=== PATIENT | female | born 1945 | race Caucasian/White ===

== ENCOUNTER 2017-12-01 11:38 | Inpatient (IN) | payer OTHER ==
[2017-12-01] MEDS ORDERED: Morphine INJ* 4 MG/ML 1 ML SYRINGE (NEW SYRINGE VERSION) IV ONE (12:36)
[2017-12-01 12:41] LABS: ABS Basophils 0 10^3/ul (0-0.2); ABS Eosinophils 0 10^3/ul (0-0.6); ABS Lymphocytes 0.8 10^3/ul (1.0-4.8); ABS Monocytes 0.3 10^3/ul (0-0.8); ABS Neutrophils 4.1 10^3/ul (1.5-7.7); ABS Nucleated RBC 0 10^3/ul; Eosinophil % 0.4 % (0-6); Hematocrit 37 % (35-47); Hemoglobin 12.6 g/dl (12.0-16.0); Lymphocyte % 15.4 % (25-47); Mean Corpuscular HGB Conc 34 g/dl (31-36); Mean Corpuscular Hemoglobin 31 pg (27-31); Mean Corpuscular Volume 91 fL (80-97); Mean Platelet Volume 7.5 um3 (7.4-10.4); Nucleated Red Blood Cells % 0; Platelet Count 317 10^3/ul (150-450); Red Blood Count 4.01 10^6/ul (4.0-5.4); Red Cell Distribution Width 13 % (10.5-15); White Blood Count 5.2 10^3/ul (3.5-10.8)
[2017-12-01 13:19] LABS: EGFR Non-African American 94.4 (>60)
--- NOTE | 2017-12-01 13:25 | RAD ---
HISTORY: Syncope COMPARISONS: None TECHNIQUE: Multiple contiguous axial CT scans were obtained of the head without intravenous contrast. FINDINGS: HEMORRHAGE/INFARCT: There is no hemorrhage or acute infarct. MASSES/SHIFT: There is no mass or shift. EXTRA-AXIAL SPACES: There are no extra-axial fluid collections. SULCI AND VENTRICLES: The sulci and ventricles are normal in size and position for the patient's stated age. CEREBRUM: There are no focal parenchymal abnormalities. BRAINSTEM: There are no focal parenchymal abnormalities. CEREBELLUM: There are no focal parenchymal abnormalities. VESSELS: The vessels are grossly normal. PARANASAL SINUSES: The paranasal sinuses are clear. ORBITS: The orbits are unremarkable. BONES AND SOFT TISSUE: No bone or soft tissue abnormalities are noted. OTHER: None IMPRESSION: NO ACUTE INTRACRANIAL PATHOLOGY.
--- NOTE | 2017-12-01 13:28 | RAD ---
HISTORY: Syncope, fall. No other history is provided. COMPARISONS: None TECHNIQUE: Multiple contiguous axial CT scans were obtained of the cervical spine without intravenous contrast, with coronal and sagittal multiplanar reformations. FINDINGS: BRAIN: The visualized brain is unremarkable CENTRAL CANAL: Evaluation of the central canal is limited on CT technique; however, there is no obvious canalicular mass or epidural hemorrhage. ALIGNMENT: There is straightening with reversal of the normal cervical lordosis. VERTEBRAL BODIES: There is diffuse osteopenia. There is no displaced fracture or dislocation. JOINTS: There is uncovertebral and facet osteoarthritis. There is osteoarthritis of the atlantoaxial articulation. MUSCULATURE: Unremarkable INTERVERTEBRAL DISCS: There is diffuse loss of intervertebral disc height. AXIAL IMAGES: There is multilevel uncovertebral and facet osteoarthritic. This results in moderate neural foraminal narrowing at C4-C5 and C6-C7, with severe neural foraminal narrowing at C5-C6. There is no osseous central canal stenosis. SOFT TISSUES: The visualized soft tissues of the neck are unremarkable. The prevertebral fat stripe is preserved. OTHER: None. IMPRESSION: 1. DEGENERATIVE DISC DISEASE AND OSTEOARTHRITIS. 2. NO ACUTE OSSEOUS INJURY TO THE CERVICAL SPINE.
--- NOTE | 2017-12-01 14:45 | RAD ---
HISTORY: Left ankle pain and deformity, fall COMPARISONS: None VIEWS: 6, Frontal, lateral, and oblique views of the left ankle FINDINGS: BONE DENSITY: Normal. BONES: There is oblique fracture through the distal fibula with a displaced fracture of the medial malleolus. There is medial subluxation of the tibia with suspected the talus of approximately 2 cm. There is anterior subluxation of the tibia with suspected the talus. There is widening of the tibiofibular interval. JOINTS: There is no arthropathy. ALIGNMENT: There is no dislocation. SOFT TISSUES: Unremarkable. OTHER FINDINGS: None. IMPRESSION: BIMALLEOLAR FRACTURE OF THE LEFT ANKLE WITH ANTERIOR AND MEDIAL SUBLUXATION OF THE TIBIA WITH RESPECT TO THE TALUS AND WIDENING OF THE TIBIOFIBULAR INTERVAL
--- NOTE | 2017-12-01 14:46 | RAD ---
HISTORY: Left foreleg pain, fall COMPARISONS: Left ankle dated December 01, 2017 VIEWS: 3, Frontal and lateral views of the left foreleg FINDINGS: BONE DENSITY: Normal. BONES: Again noted is an oblique fracture of the distal fibula, with a displaced fracture of the medial malleolus, better evaluated on the ankle films. JOINTS: There is no arthropathy. ALIGNMENT: There is no dislocation. SOFT TISSUES: Unremarkable. OTHER FINDINGS: None. IMPRESSION: AGAIN NOTED IS A BIMALLEOLAR FRACTURE OF THE LEFT ANKLE.
--- NOTE | 2017-12-01 14:46 | RAD ---
INDICATION: Syncope and chest pain COMPARISON: None. TECHNIQUE: Single AP portable view of the chest was obtained. FINDINGS: Image quality is compromised due to the relative inferiority of a portable chest x-ray. External defibrillator pads are noted overlying the patient's chest. The heart and mediastinum exhibit normal size and contour. The lungs are grossly clear. There is no evidence of a large pleural effusion. Appearance of healed rib fractures are noted at the left 4 and 5 lateral ribs. IMPRESSION: No radiographic evidence for acute cardiopulmonary abnormality on this portable chest x-ray.
--- NOTE | 2017-12-01 14:47 | RAD ---
INDICATION: Pain after a fall. Relevant surgical history includes right total hip arthroplasty. TECHNIQUE: An AP view of the pelvis was obtained. FINDINGS: The right hip prosthesis is anatomically aligned in the AP projection. There is no evidence of fracture on this single AP view. The visualized bones are intact and appropriately aligned. IMPRESSION: Anatomic alignment of the right hip prosthesis in the AP projection without radiographically apparent fracture or dislocation.
[2017-12-01] MEDS ORDERED: Midazolam* 1 MG/ML 2 ML VIAL (2 MG) IV ONE (14:56)
[2017-12-01] MEDS ORDERED: fentaNYL* 50 MCG/ML 2 ML VIAL (100 MCG VIAL) IV SLOW PU ONE (14:56)
[2017-12-01] MEDS ORDERED: Atropine SYRINGE* 0.1 MG/ML 10 ML SYRINGE (1 MG) IV PUSH ONE (15:00)
[2017-12-01] MEDS ORDERED: Lidocaine 1% INJ* 10 MG/ML 30 ML SDV ONE (15:34)
[2017-12-01] MEDS ORDERED: Perflutren Lipid Microsphere* 3 ML VIAL ONE (15:40)
--- NOTE | 2017-12-01 15:48 | CONSULT ---
Subjective Date of Service: 12/01/17 Interval History: Date of admission and consult 12/01/2017 PMD: Dr. Nirav Kay Service: Hospitalist CC: syncope Reason for consult: Syncope, sinus arrest HPI Radha Madrid is a 72 year old woman with recurrent LOC without prodrome. Last episode was 2 years ago while putting in a lightbulb, has had about 5 full loss of consciousness total episodes. Today was in kitchen writing and without prodrome or warning was found on floor. She was found to have a left lower extremity fracture that may require surgery. While in the ER she had severe bradycardia followed by a 7 second pause associated with brief syncope. She was in 9/10 pain at the time and may have been in part vagal cardioinhibitory mediated. She later had severe symptomatic bradycardia associated with nausea but not LOC. She hashas had dizziness episodes recently. At baseline she uses a cane if out sometimes but denies any outright exertional CP, dyspnea, edema, palpitations. Given her recurrent syncope without prodrome, severe injury including a broke bone and documented symptomatic pause I recommended a cardiac pacemaker. I discussed the reasoning for this as to hope to prevent further syncopal episodes and she is agreeable to this. Her (and later daughter while in ICU) were at bedside. All questions were answered. Pmhx: PE 3 years ago found during a pneumonia, was on warfarin up until a year ago TIA's in the past HTN Denies any hx of CAD, PAD, MS, CHF or arrhythmias PAST SURGICAL HISTORY: 1. Tonsillectomy. 2. Left shoulder replacement. 3. Kyphoplasty. 4. Esophageal procedure. 5. Hiatal hernia repair. 6. Hysterectomy. 7. Right hip hemiarthroplasty. 8. Right total hip arthroplasty. fam hx: noncontributory soc hx: no tobacco use, no excessive etoh use, no illicit drugs, is healthcare proxy Allergies Allergy/AdvReac Type Severity Reaction Status Date / Time Adhesive Tape Allergy Severe Blisters Verified 08/03/16 12:13 cephalexin [From Keflex] Allergy Unknown Verified 12/01/17 15:24 Reaction Details Medications Active Medications: Active Medications Generic Name Dose Route Start Last Admin Trade Name Freq PRN Reason Stop Dose Admin Albuterol 2 puff 12/01/17 16:06 Ventolin Hfa Inhaler* INH Q4H PRN SHORTNESS OF BREATH Benzonatate 100 mg 12/01/17 16:06 Tessalon Cap* PO TID PRN COUGH Cyclobenzaprine HCl 5 mg 12/01/17 16:06 Flexeril Tab* PO TID PRN SPASMS - MUSCLE Heparin Sodium (Porcine) 5,000 units 12/01/17 22:00 Heparin Vial(*) SUBCUT 12/01/17 23:59 Q8HR [facility] Hydroxyzine HCl 25 mg 12/01/17 16:06 Atarax Tab* PO TID PRN ITCHING Sodium Chloride 1,000 mls @ 75 mls/hr 12/01/17 16:00 12/01/17 18:19 Ns 0.9% 1000 Ml* IV 75 mls/hr PER RATE MICK Administration Clindamycin HCl/Dextrose 900 mg in 50 mls @ 100 mls/hr 12/02/17 08:00 Cleocin 900 Mg Ivpremix (*) Sdv IV 12/02/17 08:29 ONCALL ONE Lisinopril 20 mg 12/02/17 09:00 Prinivil Tab* PO DAILY [facility] Omeprazole 20 mg 12/02/17 09:00 Prilosec Cap* PO DAILY [facility] Protocol Oxycodone/Acetaminophen 1 tab 12/01/17 16:06 Percocet 5/325 Tab* PO Q4H PRN FEVER/PAIN Polyethylene Glycol/Electrolytes 17 gm 12/01/17 16:06 Miralax* PO DAILY PRN CONSTIPATION Potassium Chloride 10 meq 12/02/17 09:00 Klor Con Er Tab* PO DAILY [facility] Pramipexole Dihydrochloride 0.25 mg 12/01/17 21:00 Mirapex Tab* PO BEDTIME [facility] Senna 1 tab 12/01/17 21:00 Senokot Tab* PO BID [facility] Home Medications: Aspirin EC Low Dose* [Ecotrin EC Low Dose 81 MG*] 81 mg PO DAILY 12/01/17 [ History Confirmed 12/01/17] Cholecalciferol (Vitamin D3) [Vitamin D3] 1,000 unit PO BID 12/01/17 [History Confirmed 12/01/17] Cyclobenzaprine (NF) [Cyclobenzaprine 5 MG (NF)] 5 mg PO BID PRN 12/01/17 [ History Confirmed 12/01/17] Cyproheptadine TAB* [Periactin TAB*] 4 mg PO SEE INSTRUCTIONS 12/01/17 [History Confirmed 12/01/17] Esomeprazole(NF) [NEXium(NF)] 20 mg PO DAILY 12/01/17 [History Confirmed ] Lisinopril/HCTZ 20/25(NF) [Zestoretic 20/(NF)] 1 tab PO DAILY 12/01/17 [ History Confirmed 12/01/17] Potassium Chlor TAB* [Klor Con ER TAB*] 10 meq PO DAILY 12/01/17 [History Confirmed 12/01/17] Pramipexole TAB* [Mirapex TAB*] 0.25 mg PO BEDTIME 12/01/17 [History Confirmed 12/01/17] Senna TAB* [Senokot TAB*] 1 tab PO BID 12/01/17 [History Confirmed 12/01/17] hydrOXYzine HCL TAB* [Atarax 25 MG TAB*] 25 mg PO TID PRN 12/01/17 [History Confirmed 12/01/17] oxyCODONE/Acetamin 5/325 MG* [Percocet 5/325 TAB*] 1 tab PO Q4H PRN 12/01/17 [ History Confirmed 12/01/17] Review of Systems - Measurements Intake and Output: Intake and Output Last 24 Hours 11/29/17 11/30/17 12/01/17 12/02/17 06:59 06:59 06:59 06:59 Weight 179 lb - Review of Systems Constitutional Symptoms: Negative: Weight Gain, Weight Loss, Weakness, Fatigue, Fever Dermatology: Negative: Rash, Skin Lesions HEENT: Negative: Change in Hearing, Vertigo, Tinnitus Eyes: Negative: Change in Vision, Double Vision Thyroid: Negative: Goiter, Thyroid Nodule, Cold Intolerance, Heat Intolerance, Sweatiness, Tremor, Frequent Defecation, Constipation, Palpitations, Weight Loss , Weight Gain Pulmonary: Negative: Cough, Sputum, Hemoptysis, Wheezing, Respiratory Distress, Shortness of Breath, COPD, Asthma, Home Oxygen Cardiology: Positive: Faintness, Syncope Negative: Chest Pain, Shortness of Breath, Palpitations, Swelling of Ankles, Peripheral Vascular Dis, Edema, Claudication, Paroxysmal Nocturnal Dyspnea, Orthopnea Gastroenterology: Negative: Abdominal Pain, Anorexia, Difficulty Swallowing, Change in Bowel Habits Genital - Urinary: Negative: Dysuria, Hematuria, Polyuria Musculoskeletal: Negative: Joint Pain, Joint Stiffness, Arthritis Endocrinology: Negative: Thyroid Problems, Polydipsia, Polyuria, Gynecomastia, Pituitary Disease Hematologic/Lymphatic: Positive: Use of Antiplatelet Drugs Negative: Use of Anticoagulant Neurology: Positive: Dizziness, Hx of Stroke\TIA Negative: Diplopia, Change in Balancing, Change in Coordination, Change in Memory, Change in Walking, Numbness\Paresthesiae, Hx Seizures Psychiatry: Negative: Unusual Fatigue, Unusual Anxiety, Suicidal Ideation Allergic/Immunologic: Negative: Hx HIV, Immunocompromise Review of Systems Statement: All other review of systems negative, unless stated above. Objective Vital Signs: Temp Pulse Resp BP Pulse Ox 97.2 F 74 18 123/80 100 12/01/17 11:45 12/01/17 15:00 12/01/17 15:12 12/01/17 15:00 12/01/17 15:00 Appearance: nad, not anxious Ears/Nose/Mouth/Throat: Clear Oropharnyx, Mucous Membranes Moist Neck: NL Appearance and Movements; NL JVP, Trachea Midline Respiratory: Symmetrical Chest Expansion and Respiratory Effort, Clear to Auscultation Cardiovascular: NL Sounds; No Murmurs; No JVD, RRR Abdominal: NL Sounds; No Tenderness; No Distention Extremities: No Clubbing, Cyanosis Skin: No Rash or Ulcers, - - left ankle in brace Laboratory Results: 0 12/01/17 12:30 12/01/17 12:30 Total Bilirubin 0.60 mg/dL (0.2-1.0) 12/01/17 12:30 AST 16 U/L (13-39) 12/01/17 12:30 ALT 19 U/L (7-52) 12/01/17 12:30 Alkaline Phosphatase 77 U/L (34-104) 12/01/17 12:30 B-Natriuretic Peptide 13 pg/mL (-100) 12/01/17 12:30 Total Protein 7.0 g/dL (6.4-8.9) 12/01/17 12:30 Albumin 3.9 g/dL (3.2-5.2) 12/01/17 12:30 Globulin 3.1 g/dL (2-4) 12/01/17 12:30 Albumin/Globulin Ratio 1.3 (1-3) 12/01/17 12:30 TSH 0.97 mcIU/mL (0.34-5.60) 12/01/17 12:30 12/01/17 12:30 Troponin I 0.01 Diagnostic Imaging: cxr 12/01/2017: no acute disease brain ct 12/01/2017: no acute disease EKG Data: ekg 12/01/2017: nsr, non-specific st changes lead III Echo today 12/01/2017: Normal LV and RV size and function, no significant valvular abnormalities noted, no significant pericardial effusion. Assessment/Plan Radha Madrid is a 72 year old woman with recurrent syncope with injury and without prodrome. She has documented severe sinus bradycardia and 7 second symptomatic pause while in pain/vagal response in the ER. LVEF normal. Permanent cardiac dual chamber pacemaker recommended. Risks, benefits and alternatives discussed and patient wished to proceed. Would use good pain control and anti-nausea medicine to help prevent vagal responses, adequate IV hydration and use atropine IV PRN NPO after midnight for pacemaker tomorrow with Dr. Malone, hold DVT prophylaxis after tonight Thank you for allowing me to participate in the cardiovascular care of this patient. Please do not hesitate to contact me questions or concerns.
[2017-12-01] MEDS ORDERED: Benzonatate CAP* 100 MG PO PRN (16:06)
[2017-12-01] MEDS ORDERED: Albuterol HFA INHALER* 8 gm MDI INH PRN (16:06)
[2017-12-01] MEDS ORDERED: oxyCODONE/Acetamin 5/325 MG* TAB PO PRN (16:06)
[2017-12-01] MEDS ORDERED: Polyethylene Glycol 3350* 17 GM PACKET PO PRN (16:06)
[2017-12-01] MEDS ORDERED: hydrOXYzine HCL TAB* 25 MG PO PRN (16:06)
[2017-12-01] MEDS ORDERED: Atropine SYRINGE* 0.1 MG/ML 10 ML SYRINGE (1 MG) ONE ×2 (16:12→21:51)
--- NOTE | 2017-12-01 17:02 | RAD ---
INDICATION: Post reduction COMPARISON: Left ankle radiograph acquired at 1351 hours TECHNIQUE: 2 views of the left ankle were obtained. FINDINGS: Evaluation of the left ankle is obscured by the patient's overlying splint. Again seen are fractures at the distal tibia and fibula corresponding to the prior imaging. The bones are otherwise anatomically aligned. IMPRESSION: ANATOMIC ALIGNMENT OF LEFT TRIMALLEOLAR FRACTURE STATUS POST ATTENDING
--- NOTE | 2017-12-01 17:23 | ECHO ---
Patient: MASOUD BAILEY [facility] Rec#: [id number] : 1945 Date: 12/01/2017 Age: 72y Height: 167.64 cm / 66.0 in Weight: 81.19 kg / 178.9 lbs Sex: F BSA: 1.91 Room#: ED 10 Admit Date#: 12/01/2017 Type: Inpatient Referring: Adeel Ovalle DO Reading: Adeel Ovalle DO [employer] Technician: Elicia Walls RD,RDMS Transthoracic Echocardiogram Indication: Syncope BP: 123/80 HR: 66 Rhythm: NSR Findings History: Syncope, HTN, HLD, DVT/PE Technical Comments: The study quality is good. Left Ventricle: The left ventricular chamber size is normal. Mild concentric left ventricular hypertrophy is observed. Global left ventricular wall motion and contractility are within normal limits. There is normal left ventricular systolic function. The estimated ejection fraction is greater than 65%. There is no consistent Doppler evidence of clinically significant diastolic dysfunction. Left Atrium: The left atrial chamber size is normal. Right Ventricle: The right ventricular chamber size and systolic function are within normal limits. Right Atrium: The right atrium is slightly dilated. Aortic Valve: The aortic valve is trileaflet. Systolic excursion of the aortic valve is normal. There is aortic annular calcification.that is mild There is no evidence of aortic regurgitation. There is no evidence of aortic stenosis. Mitral Valve: The mitral valve leaflets appear normal. There is a trace of mitral regurgitation. There is no evidence of mitral stenosis. Tricuspid Valve: The tricuspid valve leaflets are normal. There is trace tricuspid regurgitation. Unable to estimate the right ventricular systolic pressure. Pulmonic Valve: The pulmonic valve structure is not well visualized. There is a trace pulmonic regurgitation. There is no pulmonic stenosis. Pericardium: There is no significant pericardial effusion. Aorta: The aortic root appears normal. There is no dilatation of the aortic arch. Pulmonary Artery: The main pulmonary artery is not well visualized. Venous: The inferior vena cava is not visualized. Contrast: Definity was used to optimize study. A total of 2 ml was used Conclusions The left ventricular chamber size is normal. Mild concentric left ventricular hypertrophy is observed. There is normal left ventricular systolic function. The estimated ejection fraction is 65-70% The left atrial chamber size is normal. The right ventricular chamber size and systolic function are within normal limits. No significant valvular abnormalities noted Unable to estimate the right ventricular systolic pressure. There is no significant pericardial effusion. Definity was used to optimize study. None prior for comparison at time of interpretation Measurements Name Value Normal Range RVIDd (AP) 2D 2 cm (0.9 - 2.6) RVDdMajor (2D) 1.4 cm (2.2 - 4.4) RAd ISD 4CH 5.1 cm (3.4 - 4.9) RA (A4C)W 3.1 cm (2.9 - 4.6) IVSd (2D) 1.1 cm (0.6 - 1) LVPWd (2D) 1.3 cm (0.6 - 1) LVIDd (2D) 3.7 cm (3.6 - 5.4) LVIDs (2D) 2.5 cm - LV FS (2D) 33 % (25 - 45) Aortic Annulus 2 cm (1.4 - 2.6) Ao root diameter (2D) 3.3 cm (2.1 - 3.5) Ascending Ao 3 cm (2.1 - 3.4) Aortic arch 2.4 cm (1.8 - 3.4) LA dimension (AP) 2D 3.3 cm (2.3 - 3.8) LAd ISD 4CH 5 cm (2.9 - 5.3) LA ISD 4CH W 4.6 cm (2.5 - 4.5) Name Value Normal Range LA ESV SP 4CH (A/L) 57 ml - LA ESV SP 2CH (A/L) 52.05 ml - LA ESV BP (A/L) 55.56 ml - LA ESV BP (A/L) index 29 ml/m2 - LA ESV SP 4CH (MOD) 53.32 ml - LA ESV SP 2CH (MOD) 49.68 ml - Name Value Normal Range MV E-wave Vmax 0.7 m/sec - MV deceleration time 221 msec - MV A-wave Vmax 0.9 m/sec - MV E:A ratio 0.8 ratio - LV lateral e' Vmax 0.09 m/sec - LV E:e' lateral ratio 8 ratio - Name Value Normal Range AV Vmax 1.1 m/sec - AV VTI 21.5 cm - AV peak gradient 5 mmHg - AV mean gradient 2 mmHg - LVOT Vmax 0.8 m/sec - LVOT VTI 19 cm - LVOT peak gradient 2.6 mmHg - LVOT mean gradient 1.3 mmHg - BENITA Vmax 0.8 m/sec - Name Value Normal Range RAP 8 mmHg - Name Value Normal Range PV Vmax 0.7 m/sec - PV peak gradient 2 mmHg -
[2017-12-01] MEDS ORDERED: Ondansetron INJ* 2 MG/ML VIAL ONE (17:28)
[2017-12-01] MEDS: NS 0.9% 1000 ML* 1,000 ML IV SCH (18:19)
[2017-12-01] MEDS ORDERED: Ondansetron INJ* 2 MG/ML VIAL IV ONE (18:30)
--- NOTE | 2017-12-01 20:08 | ED ---
Jason Harper Julia, scribed for Emma Hawkins MD on 12/01/17 at 1202 . Syncope/Near Syncope - HPI Summary HPI Summary: This patient is a 72 year old F BIBA to [facility] due to syncope occurring this morning, resulting in left ankle injury and pain. The patient rates the pain 9/ 10 in severity. Pt given 5mg of morphine by EMS. Patient reports two previous syncopal episodes, with the last one occurring over two years ago. She states that she has seen her PCP for this issue and a hx of muscles spasms. She reports LOC and is unsure if she hit her head, but suspects that she may have. Patient denies nausea, fever, headache, vision changes, ear ache, sore throat, CP,S OB, abdominal pain, back pain, and urinary symptoms. - History Of Current Complaint Chief Complaint: EDSyncope Hx Obtained From: Patient, EMS Onset/Duration: Sudden Onset Context: Unwitnessed, Loss Of Consciousness Associated Head Trauma: Yes Associated Signs And Symptoms: Head Trauma (Remote) Related History: Similar Episode/Dx as - syncope Frequency: Episodes x___ - 3, over the course of years - Allergies/Home Medications Allergies/Adverse Reactions: Allergies Allergy/AdvReac Type Severity Reaction Status Date / Time Adhesive Tape Allergy Severe Blisters Verified 08/03/16 12:13 cephalexin [From Keflex] Allergy Unknown Verified 12/01/17 15:24 Reaction Details Home Medications: Home Medications Albuterol HFA INHALER* [Ventolin HFA Inhaler*] 2 puff INH Q4H PRN 12/01/17 [ History Confirmed 12/01/17] Benzonatate CAP* [Tessalon 100 MG CAP*] 100 mg PO TID PRN 12/01/17 [History Confirmed 12/01/17] Calcium Carbonate/Vitamin D3 [Calcium 500+D 500-200 mg-Unit] 1 tab PO DAILY [History Confirmed 12/01/17] Cholecalciferol (Vitamin D3) [Vitamin D3] 1,000 unit PO BID 12/01/17 [History Confirmed 12/01/17] Cyclobenzaprine (NF) [Cyclobenzaprine 5 MG (NF)] 5 mg PO BID PRN 12/01/17 [ History Confirmed 12/01/17] Cyproheptadine TAB* [Periactin TAB*] 4 mg PO DAILY PRN 12/01/17 [History Confirmed 12/01/17] Esomeprazole(NF) [NEXium(NF)] 40 mg PO DAILY 12/01/17 [History Confirmed ] Lisinopril/HCTZ 20/25(NF) [Zestoretic 20/25(NF)] 1 tab PO DAILY 12/01/17 [ History Confirmed 12/01/17] Minocycline (NF) 50 mg PO BID PRN 12/01/17 [History Confirmed 12/01/17] Polyethylene Glycol 3350* [Miralax*] 17 gm PO DAILY PRN 12/01/17 [History Confirmed 12/01/17] Potassium Chlor TAB* [Klor Con ER TAB*] 10 meq PO DAILY 12/01/17 [History Confirmed 12/01/17] Pramipexole TAB* [Mirapex TAB*] 0.25 mg PO BEDTIME 12/01/17 [History Confirmed 12/01/17] Senna TAB* [Senokot TAB*] 1 tab PO BID 12/01/17 [History Confirmed 12/01/17] hydrOXYzine HCL TAB* [Atarax 25 MG TAB*] 25 mg PO TID PRN 12/01/17 [History Confirmed 12/01/17] oxyCODONE/Acetamin 5/325 MG* [Percocet 5/325 TAB*] 1 tab PO Q4H PRN 12/01/17 [ History Confirmed 12/01/17] PMH/Surg Hx/FS Hx/Imm Hx Endocrine/Hematology History: Reports: Hx Anemia Cardiovascular History: Reports: Hx Hypertension Respiratory History: Reports: Hx Sleep Apnea GI History: Reports: Hx Gastroesophageal Reflux Disease, Hx Hiatal Hernia, Hx Irritable Bowel, Hx Ulcer - esophagus Musculoskeletal History: Reports: Hx Arthritis, Hx Bursitis, Hx Tendonitis Sensory History: Reports: Hx Cataracts, Hx Contacts or Glasses Denies: Hx Hearing Aid Opthamlomology History: Reports: Hx Cataracts, Hx Contacts or Glasses Neurological History: Reports: Hx Nerve Disease, Other Neuro Impairments/ Disorders - RLS Psychiatric History: Reports: Hx Anxiety, Hx Depression - Surgical History Surgery Procedure, Year, and Place: T&A 1974 [place]. HYSTERECTOMY 1976 [place]. LEFT SHOULDER REPLACEMENT 2008 [place]. RIGHT HIP REPLACEMENT 2012 [place], [place]. GASTRO & HIATAL HERNIA REPAIR 2014 [place]. BACK SURGERY 02/2016 [place] Hx Anesthesia Reactions: No Infectious Disease History: No Infectious Disease History: Denies: Traveled Outside the [place] in Last 30 Days - Family History Known Family History: Positive: Hypertension - Social History Alcohol Use: Occasionally Substance Use Type: Reports: None Smoking Status (MU): Never Smoked Tobacco Review of Systems Negative: Fever Negative: Blurred Vision, Diplopia Negative: Sore Throat, Ear Ache Negative: Chest Pain Negative: Shortness Of Breath Negative: Abdominal Pain, Nausea Positive: no symptoms reported Positive: Myalgia - left ankle Positive: Syncope. Negative: Headache All Other Systems Reviewed And Are Negative: Yes Physical Exam - Summary Physical Exam Summary: Appearance: Alert, conversive, nontoxic appearing, in mild discomfort secondary to pain Skin: Warm, dry, no mottling, no rashes, no contusions HEENT: EOMI, PERRL, dry mucous membranes Neck: No masses on the neck, supple Respiratory: Clear to auscultation, breath sounds present, no rales, no rhonchi , no wheezes Cardiovascular: RRR, pulses are symmetrical in both lower and upper extremities Abdomen: Soft, non-tender Bowel Sounds: Present Musculoskeletal: No CVA tenderness, obvious deformity to the left ankle with good dorsalis pedis pulse, good color and capillary refill Neurological: A&Ox3, CN II-XII Intact, moving all extremities symmetrically Psychiatric: Normal affect and mood Triage Information Reviewed: Yes Vital Signs On Initial Exam: Initial Vitals Temp Pulse Resp BP Pulse Ox 97.2 F 76 20 131/78 100 12/01/17 11:45 12/01/17 11:45 12/01/17 11:45 12/01/17 11:45 12/01/17 11:45 Vital Signs Reviewed: Yes Diagnostics - Vital Signs Vital Signs Temp Pulse Resp BP Pulse Ox 12/01/17 11:45 97.2 F 76 20 131/78 100 - Laboratory Lab Results: Lab Results 12/01/17 12/01/17 12/01/17 Range/Units 12:30 12:30 12:30 WBC 5.2 (3.5-10.8) 10^3/ul RBC 4.01 (4.0-5.4) 10^6/ul Hgb 12.6 (12.0-16.0) g/dl Hct 37 (35-47) % MCV 91 (80-97) fL MCH 31 (27-31) pg MCHC 34 (31-36) g/dl RDW 13 (10.5-15) % Plt Count 317 (150-450) 10^3/ul MPV 7.5 (7.4-10.4) um3 Neut % (Auto) 77.8 (38-83) % Lymph % (Auto) 15.4 L (25-47) % Sterling % (Auto) 6.0 (0-7) % Eos % (Auto) 0.4 (0-6) % Baso % (Auto) 0.4 (0-2) % Absolute Neuts (auto) 4.1 (1.5-7.7) 10^3/ul Absolute Lymphs (auto) 0.8 L (1.0-4.8) 10^3/ul Absolute Monos (auto) 0.3 (0-0.8) 10^3/ul Absolute Eos (auto) 0 (0-0.6) 10^3/ul Absolute Basos (auto) 0 (0-0.2) 10^3/ul Absolute Nucleated RBC 0 10^3/ul Nucleated RBC % 0 Sodium 129 L (139-145) mmol/L Potassium 4.0 (3.5-5.0) mmol/L Chloride 96 L (101-111) mmol/L Carbon Dioxide 24 (22-32) mmol/L Anion Gap 9 (2-11) mmol/L BUN 10 (6-24) mg/dL Creatinine 0.62 (0.51-0.95) mg/dL Est GFR ( Amer) 121.3 (>60) Est GFR (Non-Af Amer) 94.4 (>60) BUN/Creatinine Ratio 16.1 (8-20) Glucose 104 H (70-100) mg/dL Calcium 9.3 (8.6-10.3) mg/dL Magnesium 2.0 (1.9-2.7) mg/dL Total Bilirubin 0.60 (0.2-1.0) mg/dL AST 16 (13-39) U/L ALT 19 (7-52) U/L Alkaline Phosphatase 77 (34-104) U/L Troponin I 0.01 (<0.04) ng/mL B-Natriuretic Peptide 13 ( - 100) pg/mL Total Protein 7.0 (6.4-8.9) g/dL Albumin 3.9 (3.2-5.2) g/dL Globulin 3.1 (2-4) g/dL Albumin/Globulin Ratio 1.3 (1-3) TSH 0.97 (0.34-5.60) mcIU/mL Result Diagrams: 12/01/17 12:30 12/01/17 12:30 Lab Statement: Any lab studies that have been ordered have been reviewed, and results considered in the medical decision making process. - Radiology CXR Radiology Interpretation Completed By: Radiologist - No radiographic evidence for acute cardiopulmonary abnormality on this portable chest x-ray. ED Physician has reviewed this report. Pelvis XR Radiology Interpretation Completed By: Radiologist - Anatomic alignment of the right hip prosthesis in the AP projection without radiographically apparent fracture or dislocation. ED Physician has reviewed this report. LLE XR Radiology Interpretation Completed By: Radiologist - AGAIN NOTED IS A BIMALLEOLAR FRACTURE OF THE LEFT ANKLE. ED Physician has reviewed this report. Ankle XR Radiology Interpretation Completed By: Radiologist - BIMALLEOLAR FRACTURE OF THE LEFT ANKLE WITH ANTERIOR AND MEDIAL SUBLUXATION OF THE TIBIA WITH RESPECT TO THE TALUS AND WIDENING OF THE TIBIOFIBULAR INTERVAL ED Physician has reviewed the report. Post reduction ankle XR Radiology Interpretation Completed By: Radiologist - ANATOMIC ALIGNMENT OF LEFT TRIMALLEOLAR FRACTURE STATUS POST ATTENDING. ED Physician has reviewed this report. - CT Brain CT Interpretation Completed By: Radiologist - NO ACUTE INTRACRANIAL PATHOLOGY. ED Physician has reviewed this report. Cervical Spine CT Interpretation Completed By: Radiologist - 1. DEGENERATIVE DISC DISEASE AND OSTEOARTHRITIS. 2. NO ACUTE OSSEOUS INJURY TO THE CERVICAL SPINE. ED Physician has reviewed this report. - EKG 1222 Cardiac Rate: NL - at 72 BPM EKG Rhythm: Sinus Rhythm EKG Interpretation: nml QRS, nml QTc, nml STT waves Re-Evaluation - Re-Evaluation 1 Re-Evaluation Time: 13:35 Comment: Pt states she feels like she couldn't breath during pauses in rhythm strip. Pt informed of admission. 2 Re-Evaluation Time: 15:00 Change: Worse - Pt had another episode. Course/Dx Course Of Treatment: Pt presents due to syncope occurring this morning, resulting in left ankle injury and pain. Pt given 5mg of morphine by EMS. Pt's nurse presented at rhythm stip that had two long pauses; one was 4 seconds long and the other 6-7 seconds long. This may be the reason for her syncope. Cardiology will be paged. Patient had another episode at 15:00. A CXR, Pelvis XR, Brain CT, and C-Spine CT are all negative. An ankle XR reveals, as per radiologist: BIMALLEOLAR FRACTURE OF THE LEFT ANKLE WITH ANTERIOR AND MEDIAL SUBLUXATION OF THE TIBIA WITH RESPECT TO THE TALUS AND WIDENING OF THE TIBIOFIBULAR INTERVAL. Dr. Flores performed an ankle block prior to reduction. Reduction successful, confirmed by second XR. Pt is given Atropine, Fentanyl, Lisinopril, Versed, Morphine, Zofran, and Definity. Bloodwork is WNL. Pt had a second episode of long pauses at 15:00 while in ED that resolved spontaneously. Dr. Lopez agress to admit this patient. - Diagnoses Provider Diagnoses: Symptomatic bradycardia, Bimalleolar fracture of left ankle - Critical Care Time Critical Care Time: 75-104 min - pt had multiple episodes of symptomatic bradycardia. she was placed on the pacer pads. she was given multiple doses of atropine. cardiology was consulted. she also had a fracture dislocation of left ankle fracture closed that was reduced by orthopedic surgery. pt was re- evaluated multiple times. Discharge - Sign-Out/Discharge Documenting (check all that apply): Discharge - admit - Discharge Plan Condition: Guarded Disposition: ADMITTED TO [facility] - Billing Disposition and Condition Condition: GUARDED [place] [place] Consult: At 13:29, Vasquez Tinoco, consumer recruiter, states he would see patient on an inpatient basis. We discussed sedation precautions. He recommends pt be put on Atropine and placed on pads while in ED. At 13:34, Dr. Lopez, hospitalist, agrees to admit, and requested to call and notify ortho of pt At 15:05, Dr. Flores, ortho surgeon, was informed of pt's status. He agrees to look at pt's XR results and will call back. At 15:22, Dr. Flores, states he will come to ED and perform the reduction himself, due to complexity. The documentation as recorded by the Jason parra Julia accurately reflects the service I personally performed and the decisions made by , Emma Hawkins MD.
[2017-12-01] MEDS: Pramipexole TAB* 0.5 MG PO SCH (21:41)
[2017-12-01] MEDS: Senna TAB PO SCH (21:41)
[2017-12-01] MEDS ORDERED: Atropine SYRINGE* 0.1 MG/ML 10 ML SYRINGE (1 MG) IV PRN (21:45)
[2017-12-01] MEDS ORDERED: Heparin VIAL(*) 5000 UNITS/ML VIAL (FIVE THOUSAND) SUBCUT SCH (22:00)
--- NOTE | 2017-12-01 22:05 | CONS ---
CONSULTATION REPORT: DATE OF CONSULT: 12/01/17 ATTENDING PROVIDER: Dr. Tariq Ann. HISTORY OF PRESENT ILLNESS: Radha is a 72-year-old female who was brought in to by ambulance to the [facility] Room this morning due to an episode of syncope with a resultant left ankle injury. This is at least her third syncopal episode, though her reports at least 5 episodes. Prior to the fall she reports no chest pain, shortness of breath, dizziness or tripping. Patient denies history of heart attack, stroke or difficulties with anesthesia. She has a history of pulmonary embolism for which she was previously taking coumadin, now only aspirin alone. PAST MEDICAL HISTORY: Anemia, hypertension, sleep apnea, GERD, hiatal hernia, irritable bowel syndrome, arthritis, bursitis, tendonitis, cataracts, restless legs syndrome, anxiety, depression. PAST SURGICAL HISTORY: Hysterectomy, left shoulder replacement, right hip replacement, hiatal hernia, back surgery. MEDICATIONS: As in chart. ALLERGIES: Include ADHESIVE TAPE. FAMILY HISTORY: Positive for hypertension. SOCIAL HISTORY: Occasional alcohol use. Does not smoke tobacco.Lives independently with her REVIEW OF SYSTEMS: General: feels generally well aside from syncopal episodes HEENT: no headache, no head trauma. Cardio: No history of RI, no chest pain. Respiratory: no shortness of breath. msk: left ankle pain, denies extremity pain otherwise. neuro: sensation intact throughout left lower extremity. skin: no open lesions, skin breakdown. heme: history of PE, takes aspirin daily. PHYSICAL EXAM: Vital Signs: Heart rate 74, respiratory rate 15, oxygen saturation 100%, blood pressure 123/80. General: Well appearing, no acute distress. HEENT: normocephalic, atraumatic. hearing and vision grossly normal. respiratory: normal rate and effort of breathing. MSK: left ankle with obvious deformity. No tenderness to palpation of right lower extremity, including pelvis, hip, knee and ankle. Moves RLE well. No tenderness of Left lower extremity pelvis, hip or knee. No pain with log roll. No tenderness to palpation and moves bilateral upper extremities well. Neuro: Sensation intact throughout extremities, including distal left lower extremity. Vasc: Caprllary refill less than two seconds left toes. Skin: No skin breakdown, no lacerations or open fractures. IMPRESSION: Bimalleolar fracture of the left ankle with anterior and medial subluxation of the tibia with respect to patella, some widening of the talofibular interval. PLAN: Ankle was reduced and splint placed. Xray review reveals adequate reduction. She will have a CT scan before surgery. The patient will be brought to the OR tentatively on Tuesday if she is medically cleared, otherwise later in the week. This patient was seen, examined, ankle reduced and xrays reviewed with Dr Ann. Please CC this report to Dr Tariq Ann MEREDITH GAITAN [id number]/[facility] #: [id number] MTDSejal
--- NOTE | 2017-12-01 22:21 | HP ---
CC: Dr. Carmelo Gastelum * HISTORY AND PHYSICAL: DATE OF ADMISSION: 12/01/17 PRIMARY CARE PROVIDER: Dr. Carmelo Gastelum. CHIEF COMPLAINT: Loss of consciousness. HISTORY OF PRESENT ILLNESS: Ms. Madrid is a 72-year-old female who has a history of hypertension, hyperlipidemia, history of DVT/PE, thoracic compression fracture, who presents to the emergency room after passing out at home. The patient states that she was standing at the calendar, writing on it, when she suddenly went down. She states that she had no forewarning that she was going to pass out. She only knew she passed out when she came to on the floor. She states that when she came to she had no dizziness, no chest pain, no shortness of breath. She does note however that she knew she injured her left ankle when she came to. The patient states over the last 1 week, she has had increasing episodes of dizziness. She has felt near syncopal, but she has never passed out. Her last episode of loss of consciousness was approximately 2 years ago. At that time, she was changing a light bulb and the next thing she knew she was down on the ground. PAST MEDICAL HISTORY: 1. Hypertension. 2. Hyperlipidemia. 3. History of DVT/PE. 4. History of thoracic compression fracture. PAST SURGICAL HISTORY: 1. Tonsillectomy. 2. Left shoulder replacement. 3. Kyphoplasty. 4. Esophageal procedure. 5. Hiatal hernia repair. 6. Hysterectomy. 7. Right hip hemiarthroplasty. 8. Right total hip arthroplasty. MEDICATIONS: 1. Periactin 4 mg p.o. daily p.r.n. allergies. 2. Zestoretic 20/25 one tab p.o. daily. 3. Albuterol 2 puffs inhaled q.4 hours p.r.n. shortness of breath. 4. Calcium plus D 1 tab p.o. daily. 5. MiraLAX 17 g p.o. daily p.r.n. constipation. 6. Minocycline 50 mg p.o. b.i.d. p.r.n. rash. 7. Tessalon Perles 100 mg p.o. t.i.d. p.r.n. cough. 8. Nexium 40 mg p.o. daily. 9. Hydroxyzine 25 mg p.o. t.i.d. p.r.n. itching. 10. Vitamin D3 1000 units p.o. b.i.d. 11. Potassium chloride 10 mEq p.o. daily. 12. Mirapex 0.25 mg p.o. q.h.s. 13. Senna 1 tab p.o. b.i.d. 14. Flexeril 5 mg p.o. b.i.d. p.r.n. muscle spasms. 15. Percocet 5/325 one tab p.o. q.4 hours p.r.n. pain. ALLERGIES: ADHESIVE TAPE. FAMILY HISTORY: Reviewed and noncontributory. SOCIAL HISTORY: The patient does not drink. She does not drink alcohol. She lives with her . She indicates that her is her healthcare proxy. REVIEW OF SYSTEMS: As per HPI and otherwise negative. PHYSICAL EXAMINATION GENERAL: The patient is a well-developed, elderly female, seen lying flat in the stretcher, in no acute distress. VITAL SIGNS: Blood pressure 123/80, pulse 74, respirations 15, temp 97.2, O2 sat 100% on room air. HEENT: Pupils are equal and round. Extraocular muscles are intact. Oropharynx is clear. Oral mucosa is moist. There is no submandibular, cervical , or supraclavicular adenopathy. Thyroid is not enlarged. No thyroid nodules noted. PULMONARY: Lungs are clear to auscultation bilaterally. CARDIAC: Normal S1, S2. Regular rate and rhythm. I do not appreciate any murmurs. ABDOMEN: Bowel sounds present. Abdomen is soft, nontender, nondistended. MUSCULOSKELETAL: There is no cyanosis or clubbing of the digits. There is full active range of motion of the upper extremities. Lower extremity range of motion is not tested. SKIN: Warm and dry. There are no rashes. NEUROLOGIC: Cranial nerves II through XII appeared to be grossly intact. Sensation is intact to light touch throughout. Strength is 5/5 and symmetric in the upper extremities. Lower extremity strength is not tested due to left ankle fracture. PSYCH: The patient is alert. She is oriented x3. Affect appears appropriate. DIAGNOSTIC STUDIES/LAB DATA: WBC 5.2, hemoglobin 12.6, hematocrit 37, platelets 317. Sodium 129, potassium 4.0, chloride 96, CO2 of 24, BUN 10, creatinine 0.62, glucose 104, calcium 9.3, magnesium 2.0. Bilirubin 0.6, AST 16 , ALT 19, alk phos 77. Troponin 0.01. BNP 13. Albumin 3.9. TSH 0.97. EKG reveals normal sinus rhythm without any acute ST-T wave abnormalities. CT brain, no acute intracranial pathology. CT cervical spine, degenerative disk disease and osteoarthritis. No acute osseous injury to the cervical spine. Ankle x-ray, bimalleolar fracture of the left ankle with anterior and medial subluxation of the tibia with respect to the talus and widening of the tibiofibular interval. Lower extremity x-ray, again noted is bimalleolar fracture of the left ankle. Pelvis x-ray, anatomic alignment of the right hip prosthesis and the AP projection without radiographically apparent fracture or dislocation. Chest x-ray, no radiographic evidence for acute cardiopulmonary abnormality. ASSESSMENT AND PLAN: Ms. Madrid is a 72-year-old female who had been having increased episodes of dizziness over approximately the last 1 week, who on the day of admission was writing on a calendar and suddenly had an episode of loss of consciousness where she fell to the ground and sustained a bimalleolar left ankle fracture. 1. Left ankle fracture. Orthopedics come to the emergency room and set the patient's ankle. The plan will be for the patient to go to the operating room this coming Tuesday with Dr. Bearden to have this surgically corrected. 2. Syncope. The patient while in the emergency room has had now 2 to 3 pauses of greater than 6 seconds. With one of the episodes, the nurse practitioner student in the room noted that the patient did lose consciousness and had to be sternal rubbed to come to. The patient has already seen Dr. Ovalle in consultation. He has recommended that a permanent pacemaker be placed. The plan is to have this done tomorrow. The patient will be admitted to the intensive care unit. Atropine will be kept at the bedside if she becomes markedly bradycardic without return of normal sinus rhythm. 3. Hypertension. The patient's blood pressure is under good control. She will be continued on lisinopril, but I will hold the hydrochlorothiazide component of her Zestoretic given her mild hyponatremia seen on exam today. The patient will have normal saline running and we will follow up the sodium level tomorrow. 4. DVT prophylaxis: According to the Adult Thrombosis Prophylaxis Risk Factor Assessment Guide, the patient has a total risk factor score of 10 making her the highest risk. Heparin 5000 units subcutaneous q.8 hours will be initiated, but held after midnight for planned pacemaker insertion tomorrow. 5. Code status is full and again, the patient indicates that her is her healthcare proxy. TIME SPENT: Sixty-five minutes was spent admitting this patient. [id number]/[facility] #: [id number] MTDSejal
[2017-12-02 00:32] LABS: Urine Appearance Cloudy; Urine Blood Negative (Negative); Urine Color Yellow; Urine Ketones Trace (Negative); Urine Protein Negative (Negative); Urine Specific Gravity 1.006 (1.010-1.030); Urine Urobilinogen Negative (Negative)
[2017-12-02] MEDS: NS 0.9% 1000 ML* 1,000 ML IV SCH ×2 (03:59→16:35)
[2017-12-02 06:16] LABS: INR 1.04 (0.77-1.02)
[2017-12-02 06:27] LABS: Hematocrit 36 % (35-47); Hemoglobin 12.2 g/dl (12.0-16.0); Mean Corpuscular HGB Conc 34 g/dl (31-36); Mean Corpuscular Hemoglobin 32 pg (27-31); Mean Corpuscular Volume 93 fL (80-97); Red Blood Count 3.87 10^6/ul (4.0-5.4); Red Cell Distribution Width 13 % (10.5-15); White Blood Count 6.3 10^3/ul (3.5-10.8)
[2017-12-02 06:28] LABS: EGFR Non-African American 108.3 (>60)
[2017-12-02 07:04] LABS: Mean Platelet Volume 8.7 um3 (7.4-10.4); Platelet Count 256 10^3/ul (150-450)
[2017-12-02] MEDS ORDERED: Clindamycin 900 MG IVPREMIX(* 900 MG/50 ML SDV IV ONE (08:00)
[2017-12-02] MEDS ORDERED: fentaNYL* 50 MCG/ML 2 ML VIAL (100 MCG VIAL) ONE (08:52)
[2017-12-02] MEDS ORDERED: Iohexol 300 (CONTRAST) 10 ML SDV ONE (08:52)
[2017-12-02] MEDS ORDERED: Midazolam* 1 MG/ML 5 ML VIAL (5 MG) ONE ×2 (08:52→09:57)
[2017-12-02] MEDS ORDERED: Lidocaine 1% INJ* 10 MG/ML 30 ML SDV ONE (08:52)
--- NOTE | 2017-12-02 08:58 | PN ---
Subjective Date of Service: 12/02/17 Interval History: Pt is feeling ok. She does state she has continued pain in her L ankle but it is manageable. She denies any CP or SOB. She had a 6.5sec pause overnight while on the bedpan. She had a alexander catheter placed and had no further issues with bradycardia or prolonged pauses. Objective Active Medications: Albuterol (Ventolin Hfa Inhaler*) 2 puff INH Q4H PRN PRN Reason: SHORTNESS OF BREATH Atropine Sulfate (Atropine Syringe*) 1 mg IV ONCE PRN PRN Reason: HR <35 OR SYMPTOMATIC Last Admin: 12/01/17 21:50 Dose: 1 mg Benzonatate (Tessalon Cap*) 100 mg PO TID PRN PRN Reason: COUGH Cyclobenzaprine HCl (Flexeril Tab*) 5 mg PO TID PRN PRN Reason: SPASMS - MUSCLE Hydroxyzine HCl (Atarax Tab*) 25 mg PO TID PRN PRN Reason: ITCHING Sodium Chloride (Ns 0.9% 1000 Ml*) 1,000 mls @ 100 mls/hr IV PER RATE [facility] Last Admin: 12/02/17 03:59 Dose: 100 mls/hr Lisinopril (Prinivil Tab*) 20 mg PO DAILY [facility] Omeprazole (Prilosec Cap*) 20 mg PO DAILY [facility] PRN Reason: Protocol Oxycodone/Acetaminophen (Percocet 5/325 Tab*) 1 tab PO Q4H PRN PRN Reason: FEVER/PAIN Polyethylene Glycol/Electrolytes (Miralax*) 17 gm PO DAILY PRN PRN Reason: CONSTIPATION Potassium Chloride (Klor Con Er Tab*) 10 meq PO DAILY [facility] Pramipexole Dihydrochloride (Mirapex Tab*) 0.25 mg PO BEDTIME [facility] Last Admin: 12/01/17 21:41 Dose: 0.25 mg Senna (Senokot Tab*) 1 tab PO BID [facility] Last Admin: 12/01/17 21:41 Dose: 1 tab Vital Signs - 8 hr 12/02/17 12/02/17 12/02/17 01:00 01:03 02:00 Temperature 97.7 F 97.9 F Pulse Rate 75 75 Respiratory 20 20 16 Rate Blood Pressure 105/76 103/58 (mmHg) O2 Sat by Pulse 100 100 Oximetry 12/02/17 12/02/17 12/02/17 02:15 03:00 03:02 Temperature 98.1 F Pulse Rate 75 Respiratory 18 19 20 Rate Blood Pressure 102/73 (mmHg) O2 Sat by Pulse 100 Oximetry 12/02/17 12/02/17 12/02/17 03:55 04:00 04:01 Temperature 97.9 F 97.9 F Pulse Rate 75 78 Respiratory 13 13 12 Rate Blood Pressure 114/56 (mmHg) O2 Sat by Pulse 100 100 Oximetry 12/02/17 12/02/17 12/02/17 05:00 05:04 06:00 Temperature 98.1 F 98.2 F Pulse Rate 77 77 Respiratory 15 14 17 Rate Blood Pressure 137/74 (mmHg) O2 Sat by Pulse 100 100 Oximetry 12/02/17 12/02/17 07:00 08:00 Temperature 98.4 F 98.6 F Pulse Rate 71 77 Respiratory 17 15 Rate Blood Pressure 115/83 125/71 (mmHg) O2 Sat by Pulse 99 97 Oximetry Oxygen Devices in Use Now: Nasal Cannula Appearance: Elderly female lying flat in bed, NAD Eyes: No Scleral Icterus Ears/Nose/Mouth/Throat: Mucous Membranes Moist Respiratory: Symmetrical Chest Expansion and Respiratory Effort, Clear to Auscultation - anteriorly Cardiovascular: NL Sounds; No Murmurs; No JVD, RRR Abdominal: NL Sounds; No Tenderness; No Distention Extremities: No Clubbing, Cyanosis, - - L lower leg/foot in cast Skin: No Rash or Ulcers Neurological: Alert and Oriented x 3 Result Diagrams: 12/02/17 05:56 12/02/17 07:12 Additional Lab and Data: Lab Results 12/01/17 12/01/17 12/01/17 Range/Units 12:30 12:30 12:30 WBC 5.2 (3.5-10.8) 10^3/ul RBC 4.01 (4.0-5.4) 10^6/ul Hgb 12.6 (12.0-16.0) g/dl Hct 37 (35-47) % MCV 91 (80-97) fL MCH 31 (27-31) pg MCHC 34 (31-36) g/dl RDW 13 (10.5-15) % Plt Count 317 (150-450) 10^3/ul MPV 7.5 (7.4-10.4) um3 Neut % (Auto) 77.8 (38-83) % Lymph % (Auto) 15.4 L (25-47) % [place] % (Auto) 6.0 (0-7) % Eos % (Auto) 0.4 (0-6) % Baso % (Auto) 0.4 (0-2) % Absolute Neuts (auto) 4.1 (1.5-7.7) 10^3/ul Absolute Lymphs (auto) 0.8 L (1.0-4.8) 10^3/ul Absolute Monos (auto) 0.3 (0-0.8) 10^3/ul Absolute Eos (auto) 0 (0-0.6) 10^3/ul Absolute Basos (auto) 0 (0-0.2) 10^3/ul Absolute Nucleated RBC 0 10^3/ul Nucleated RBC % 0 Sodium 129 L (139-145) mmol/L Potassium 4.0 (3.5-5.0) mmol/L Chloride 96 L (101-111) mmol/L Carbon Dioxide 24 (22-32) mmol/L Anion Gap 9 (2-11) mmol/L BUN 10 (6-24) mg/dL Creatinine 0.62 (0.51-0.95) mg/dL Est GFR ( Amer) 121.3 (>60) Est GFR (Non-Af Amer) 94.4 (>60) BUN/Creatinine Ratio 16.1 (8-20) Glucose 104 H (70-100) mg/dL Calcium 9.3 (8.6-10.3) mg/dL Magnesium 2.0 (1.9-2.7) mg/dL Total Bilirubin 0.60 (0.2-1.0) mg/dL AST 16 (13-39) U/L ALT 19 (7-52) U/L Alkaline Phosphatase 77 (34-104) U/L Troponin I 0.01 (<0.04) ng/mL B-Natriuretic Peptide 13 ( - 100) pg/mL Total Protein 7.0 (6.4-8.9) g/dL Albumin 3.9 (3.2-5.2) g/dL Globulin 3.1 (2-4) g/dL Albumin/Globulin Ratio 1.3 (1-3) TSH 0.97 (0.34-5.60) mcIU/mL Microbiology and Other Data: Microbiology 12/01/17 18:20 Nasal Screen MRSA (PCR)(YAJAIRA) - Final Nasal Mrsa Not Detected Assess/Plan/Problems-Billing Ms Madrid is a 72 yo F who has a h/o HTN, HLD and past DVT/PE who presented to the ER after having a syncopal episode at home where she sustained a L bimalleolar ankle fracture. In the ER she was found to be having prolonged pauses of >6sec. - Patient Problems (1) Syncope Current Visit: Yes Status: Acute Code(s): R55 - SYNCOPE AND COLLAPSE SNOMED Code(s): 955697029 Comment: Secondary to prolonged sinus pauses. Plan is for the patient to get a pacer today with Dr. Malone. Continue to monitor on tele. (2) Closed bimalleolar fracture of left ankle Current Visit: Yes Status: Acute Code(s): S82.842A - DISPLACED BIMALLEOLAR FRACTURE OF LEFT LOWER LEG, INIT SNOMED Code(s): 97687146 Comment: The ankle was set by Dr. Ann yesterday in the ER. Plan for ORIF with Dr. Bearden 12/05/17. Continue pain control. (3) Hyponatremia Current Visit: Yes Status: Acute Code(s): E87.1 - HYPO-OSMOLALITY AND HYPONATREMIA SNOMED Code(s): 79447467 Comment: The patient remains mildly hyponatremic but improved from yesterday. Continue to hold HCTZ. (4) HTN (hypertension) Current Visit: Yes Status: Acute Code(s): I10 - ESSENTIAL (PRIMARY) HYPERTENSION SNOMED Code(s): 04026269 Comment: BP is under good control on just lisinopril-monitor for now. (5) History of deep venous thrombosis or pulmonary embolus Current Visit: Yes Status: Acute Code(s): PZM4730 - SNOMED Code(s): 280901552 Comment: Will start SCD to RLE and resume SQ heparin as DVT prophylaxis after pacer insertion. (6) DVT prophylaxis Current Visit: Yes Status: Acute Code(s): UNR4998 - SNOMED Code(s): 880851132 Comment: SQ heparin- to resume after pacer insertion (7) Full code status Current Visit: Yes Status: Acute Code(s): Z78.9 - OTHER SPECIFIED HEALTH STATUS SNOMED Code(s): 470234296
[2017-12-02] MEDS ORDERED: Hydrochlorothiazide TAB* 25 MG PO SCH (09:00)
[2017-12-02] MEDS ORDERED: Lisinopril/HCTZ 20/25(NF) TAB PO SCH (09:00)
[2017-12-02] MEDS ORDERED: Lisinopril TAB* 10 MG PO SCH (09:00)
[2017-12-02] MEDS ORDERED: Naloxone* 0.4 MG/ML 1 ML VIAL ONE (09:17)
[2017-12-02] MEDS ORDERED: Flumazenil* 0.1 MG/ML 5 ML MDV ONE (09:17)
--- NOTE | 2017-12-02 09:25 | PN ---
Subjective Date of Service: 12/02/17 - CC: LOC Interval History: Date of admission and consult 12/01/2017 PMD: Dr. Nirav Kay Service: Hospitalist The patient denies feeling dizzy now. S/p alexander catheter and HR increased with this. Per pt several months of what she calls a spastic bladder. 2 years of intermittent dizziness and LOC, no warning. Pt denies dysuria, fevers, chills, infectious signs. Medications Active Medications: Albuterol (Ventolin Hfa Inhaler*) 2 puff INH Q4H PRN PRN Reason: SHORTNESS OF BREATH Atropine Sulfate (Atropine Syringe*) 1 mg IV ONCE PRN PRN Reason: HR <35 OR SYMPTOMATIC Last Admin: 12/01/17 21:50 Dose: 1 mg Benzonatate (Tessalon Cap*) 100 mg PO TID PRN PRN Reason: COUGH Cyclobenzaprine HCl (Flexeril Tab*) 5 mg PO TID PRN PRN Reason: SPASMS - MUSCLE Hydroxyzine HCl (Atarax Tab*) 25 mg PO TID PRN PRN Reason: ITCHING Sodium Chloride (Ns 0.9% 1000 Ml*) 1,000 mls @ 100 mls/hr IV PER RATE [facility] Last Admin: 12/02/17 03:59 Dose: 100 mls/hr Lisinopril (Prinivil Tab*) 20 mg PO DAILY [facility] Omeprazole (Prilosec Cap*) 20 mg PO DAILY [facility] PRN Reason: Protocol Oxycodone/Acetaminophen (Percocet 5/325 Tab*) 1 tab PO Q4H PRN PRN Reason: FEVER/PAIN Polyethylene Glycol/Electrolytes (Miralax*) 17 gm PO DAILY PRN PRN Reason: CONSTIPATION Potassium Chloride (Klor Con Er Tab*) 10 meq PO DAILY [facility] Pramipexole Dihydrochloride (Mirapex Tab*) 0.25 mg PO BEDTIME [facility] Last Admin: 12/01/17 21:41 Dose: 0.25 mg Senna (Senokot Tab*) 1 tab PO BID [facility] Last Admin: 12/01/17 21:41 Dose: 1 tab Objective Vital Signs: Temp Pulse Resp BP Pulse Ox 98.6 F 77 15 125/71 97 12/02/17 08:00 12/02/17 08:00 12/02/17 08:00 12/02/17 08:00 12/02/17 08:00 Oxygen Devices in Use Now: Nasal Cannula Appearance: Lying at 30 degrees, comfortable. Eyes: No Scleral Icterus, PERRLA Ears/Nose/Mouth/Throat: Clear Oropharnyx, Mucous Membranes Moist Neck: NL Appearance and Movements; NL JVP, Trachea Midline Respiratory: Symmetrical Chest Expansion and Respiratory Effort, Clear to Auscultation Cardiovascular: NL Sounds; No Murmurs; No JVD, RRR Abdominal: NL Sounds; No Tenderness; No Distention Extremities: No Clubbing, Cyanosis Skin: No Rash or Ulcers, - - left ankle in brace Neurological: Alert and Oriented x 3 Lines/Tubes/Other Access: Clean, Dry and Intact Peripheral IV Laboratory Results: 12/02/17 05:56 12/02/17 07:12 INR (Anticoag Therapy) 1.04 (0.77-1.02) H 12/02/17 05:56 Total Bilirubin 0.60 mg/dL (0.2-1.0) 12/01/17 12:30 AST 16 U/L (13-39) 12/01/17 12:30 ALT 19 U/L (7-52) 12/01/17 12:30 Alkaline Phosphatase 77 U/L (34-104) 12/01/17 12:30 B-Natriuretic Peptide 13 pg/mL (-100) 12/01/17 12:30 Total Protein 7.0 g/dL (6.4-8.9) 12/01/17 12:30 Albumin 3.9 g/dL (3.2-5.2) 12/01/17 12:30 Globulin 3.1 g/dL (2-4) 12/01/17 12:30 Albumin/Globulin Ratio 1.3 (1-3) 12/01/17 12:30 TSH 0.97 mcIU/mL (0.34-5.60) 12/01/17 12:30 Diagnostic Imaging: ECHO 11/30/17 (Dr Ovalle) EF 65%, hyperdynamic. EKG Data: Monitor: NSR, intermittent pauses up to 7 seconds, improved this AM post alexander. Assessment/Plan Radha Madrid is a 72 year old woman with recurrent syncope with injury and without prodrome. She has documented severe sinus bradycardia and 7 second symptomatic pause while in pain/vagal response in the ER. For dual chamber pacemaker implantation today. Extensive discussion on indications and details risks benefits of the procedure with the patient and her sister, and daughter. EF hyperdynamic and vagal component confirmed with improvement with alexander. I am stopping lisinopril, but may need lower dose added back. I want more filling time and BB can help with vagal mediated sycope. Replacing with metoprolol. Keep well hydrated. Urinary retention a factor with vagal tone and possible UTI based on UA. Awaiting UC results, may need ABX-Clinda won't cover most UTI pathogens. May have an underlying issue that needs evaluation by urology as well.
[2017-12-02] MEDS: Omeprazole CAP* 20 MG PO SCH (12:34)
[2017-12-02] MEDS: Potassium Chlor TAB* 10 MEQ TAB.ER PO SCH (12:35)
[2017-12-02] MEDS: Metoprolol Succinate XL TAB* 25 MG PO SCH (12:35)
[2017-12-02] MEDS: Senna TAB PO SCH ×2 (12:42→20:06)
--- NOTE | 2017-12-02 13:00 | PN ---
Progress Note - Progress Note Date of Service: 12/02/17 SOAP: Subjective: 72 y/o female with jackie fx of L ankle, splinted. Pacemaker placed today, patient wth some pain with coughing, ankle feeling well, pain under control, no discomfort with splint. Objective: General - well appearing, NAD AO resting comfortably MSK- Splint intact, no drainage, no induration, erythema at toes, above splint, weak ROM of toes but + flex/ ext. sensation intact. toes pink, warm. Vital Signs Temp 98.2 F 12/02/17 11:15 Pulse 74 12/02/17 11:15 Resp 18 12/02/17 11:15 BP 121/62 12/02/17 11:15 Pulse Ox 100 12/02/17 11:15 Intake & Output 12/01/17 12/02/17 12/02/17 18:59 06:59 18:59 Intake Total 1562 Output Total 2150 Balance -588 Weight 84.6 kg 87.3 kg Intake: IV Fluids 341 NS (0.9%) 341 IVPB 821 NS (0.9%) 821 Oral 400 Output: Urine 300 Reza 1850 Assessment: 72 y/o female with jackie fx of L ankle, splinted, DOI 12/01 Plan: - OR Tuesday pending medical clearance. - Bradycardia- pacemaker planned today - NPO, hold heparin Tuesday evening if cleared Acetaminophen (Tylenol Tab*) 650 mg PO Q4H PRN PRN Reason: PAIN Albuterol (Ventolin Hfa Inhaler*) 2 puff INH Q4H PRN PRN Reason: SHORTNESS OF BREATH Atropine Sulfate (Atropine Syringe*) 1 mg IV ONCE PRN PRN Reason: HR <35 OR SYMPTOMATIC Last Admin: 12/01/17 21:50 Dose: 1 mg Benzonatate (Tessalon Cap*) 100 mg PO TID PRN PRN Reason: COUGH Cyclobenzaprine HCl (Flexeril Tab*) 5 mg PO TID PRN PRN Reason: SPASMS - MUSCLE Hydroxyzine HCl (Atarax Tab*) 25 mg PO TID PRN PRN Reason: ITCHING Sodium Chloride (Ns 0.9% 1000 Ml*) 1,000 mls @ 100 mls/hr IV PER RATE [facility] Last Admin: 12/02/17 03:59 Dose: 100 mls/hr Metoprolol Succinate (Toprol Xl Tab*) 25 mg PO DAILY [facility] Last Admin: 12/02/17 12:35 Dose: 25 mg Omeprazole (Prilosec Cap*) 20 mg PO DAILY [facility] PRN Reason: Protocol Last Admin: 12/02/17 12:34 Dose: 20 mg Oxycodone/Acetaminophen (Percocet 5/325 Tab*) 1 tab PO Q4H PRN PRN Reason: FEVER/PAIN Polyethylene Glycol/Electrolytes (Miralax*) 17 gm PO DAILY PRN PRN Reason: CONSTIPATION Potassium Chloride (Klor Con Er Tab*) 10 meq PO DAILY [facility] Last Admin: 12/02/17 12:35 Dose: 10 meq Pramipexole Dihydrochloride (Mirapex Tab*) 0.25 mg PO BEDTIME [facility] Last Admin: 12/01/17 21:41 Dose: 0.25 mg Senna (Senokot Tab*) 1 tab PO BID [facility] Last Admin: 12/02/17 12:42 Dose: 1 tab
--- NOTE | 2017-12-02 13:48 | RAD ---
HISTORY: Status post device implant COMPARISONS: December 01, 2017 VIEWS: 1: frontal portable view of the chest at 12:00 PM FINDINGS: LINES AND TUBES: A left-sided pacemaker is noted. CARDIOMEDIASTINAL SILHOUETTE: The cardiomediastinal silhouette is normal for portable technique. PLEURA: The costophrenic angles are sharp. No pleural abnormalities are noted. There is no appreciable pneumothorax. LUNG PARENCHYMA: There is diffuse emphysematous change. ABDOMEN: The upper abdomen is clear. There is no subphrenic gas. BONES AND SOFT TISSUES: The patient is status post left shoulder arthroplasty. IMPRESSION: EMPHYSEMA. NO ACTIVE CARDIOPULMONARY DISEASE.
--- NOTE | 2017-12-02 14:54 | CONS ---
ORTHOPEDIC CONSULTATION: DATE OF CONSULT: 12/01/17 REQUESTING SERVICE: Emergency room. CONSULTING SERVICE: Orthopedics. CHIEF COMPLAINT: Left ankle pain. HISTORY OF PRESENT ILLNESS: Radha is a 72-year-old woman with a history of hypertension, hyperlipidemia, DVT/PE and prior hip fracture treated by Dr. Hawley with a total hip replacement, who came into the emergency room after passing out at home. She does report she has passed out up to 5 times recently. This time it was different, however, because she injured her left ankle at the time of falling and was unable to get up and walk afterwards. She reports that there was obvious deformity of the ankle immediately. She called her in who called an ambulance and she was brought into the emergency room. She was found to be bradycardic in the emergency room. She complains of pain at her left ankle which is constant, marked, sharp. It is improved with immobilization, it is worse with any motion. Denies any numbness or tingling in the foot. No prior problems with the ankle. Denies pain anywhere else at this time. PAST MEDICAL HISTORY: 1. Hypertension. 2. Hyperlipidemia. 3. History of DVT/PE. 4. History of thoracic compression fracture. 5. History of right hip fracture treated with hip replacement. PAST SURGICAL HISTORY: 1. Right total hip arthroplasty. 2. Tonsillectomy. 3. Left shoulder placement. 4. Kyphoplasty. 5. Hiatal hernia repair. 6. Hysterectomy. MEDICATIONS: 1. Periactin. 2. Zestoretic. 3. Albuterol. 4. Calcium. 5. Vitamin D. 6. MiraLax. 7. Minocycline. 8. Tessalon Perles. 9. Nexium. 10. Hydroxyzine. 11. Potassium chloride. 12. Mirapex. 13. Senna. 14. Flexeril. 15. Percocet. ALLERGIES: ADHESIVE TAPE. FAMILY HISTORY: Reviewed and noncontributory. SOCIAL HISTORY: The patient does not work right now. She lives with her . She does not drink alcohol, does not smoke cigarettes. REVIEW OF SYSTEMS: Negative for fever, recent visual changes, difficulty swallowing, chest pain, shortness of breath, abdominal pain, hematuria, easy bruising, diffuse weakness, or lack of coordination, diffuse rash. Again, it is positive for recent syncopal events and falls. PHYSICAL EXAM: General Appearance: Healthy and nonseptic and in no acute distress upon my evaluation. Vital Signs: Pulse 74, blood pressure 123/80, respirations 15, temperature 97.2, and 100% saturation on room air. Cardiovascular: Pulse examination demonstrates positive pedal pulses, brisk capillary refill. There are no varicosities in the feet. She does have episodes of bradycardia down to the 30s. Lymphatic: No lymphadenopathy appreciated. Abdomen: Soft and nontender. Skin: Bilateral upper and lower extremity examination reveals no ulcerative lesion. Psychiatric/Neurological: Appropriate affect, alert and oriented to person, place and time. There is no significant abnormality and coordination appreciated. Normal reflexes and deep tendon reflexes in the affected extremity. Musculoskeletal: Bilateral upper extremities and right lower extremity show full range of motion with no evidence of instability and no tenderness to palpation and 5/5 strength. There is no gross deformity of those extremities. She has no pain with right hip range of motion, no pain with palpation of the pelvis and compression of the pelvis. In her left lower extremity, she does have normal motor strength and intact to light touch sensation. There is no global swelling, edema or varicosities. The skin and nails are normal to inspection and palpation without evidence of RSD or lymphadenopathy. She has an obvious deformity at her left ankle with tenting of the skin medially. There is tenderness about the ankle. She has a palpable dorsalis pedis pulse and the foot is warm and well perfused. Sensation is intact to light touch in the foot. No pain with hip or knee range of motion. IMAGING: X-rays were obtained and independently interpreted and show a displaced left trimalleolar ankle fracture dislocation. A/P: She will be admitted to the hospitalist service and likely receive a pacemaker tomorrow. I discussed with Dr. Lopez about potentially having her ankle surgery early next week if all goes well with the pacemaker insertion. She will be on subcutaneous heparin for DVT prophylaxis, especially given her history. She will be nonweightbearing in the left lower extremity and remain in the splint. Tentative plan for left ankle fracture ORIF Tuesday with Dr Bearden. PROCEDURE NOTE: DIAGNOSIS: Left closed ankle trimalleolar fracture dislocation. PROCEDURE IN DETAIL: We discussed the risks and benefits of closed reduction of the dislocation and splinting. She provided verbal consent to move forward with the procedure. Under sterile condition, 10 cc of 1% lidocaine is injected in the left ankle joint with a 22-gauge needle which provided an excellent hematoma block. Pain was much improved. Therefore, I moved forward with a closed reduction of the left ankle and placed a short leg AO splint. She tolerated the procedure well and without any complications. Postreduction x- rays were independently interpreted and do show near anatomic alignment of the left ankle fractures. [id number]/[facility] #: [id number]
[2017-12-02] MEDS: Pramipexole TAB* 0.5 MG PO SCH (16:38)
[2017-12-02] MEDS ORDERED: Pramipexole TAB* 0.5 MG PO ONE (17:00)
[2017-12-02] MEDS: Cyclobenzaprine TAB* 10 MG PO PRN (21:10)
--- NOTE | 2017-12-02 21:43 | RAD ---
INDICATION: Left ankle fracture COMPARISON: Ankle radiograph acquired December 01, 2017 TECHNIQUE: Noncontrast CT examination of the left ankle. Axial images were acquired and sagittal and coronal reformats were created and independently analyzed. FINDINGS: There is a minimally displaced oblique fracture through the distal metaphysis of the left fibula extending obliquely and medially to just above the level of the fibular malleolus. There is a fracture at the tibial malleolus with the more proximal shaft of the tibia displaced 5 mm medial relative to the distal tibial malleolus. Finally, depicted best in the sagittal plane images, there is a slightly displaced fracture of the posterior tibial malleolus (image 33). There is widening of the ankle mortise along its medial portion. The remaining visualized bones are intact and adequately aligned. There is associated surrounding soft tissue swelling at the level of the ankle and infiltration of the subcutaneous fat. The soft tissues otherwise appear to be adequately intact. IMPRESSION: Left trimalleolar fracture with asymmetric widening of the medial ankle mortise.
[2017-12-02] MEDS: oxyCODONE TAB* 5 MG TAB PO PRN (23:46)
[2017-12-03] MEDS ORDERED: HYDROmorphone INJ* 1 MG/ML CARPUJECT SYRINGE IV ONE ×2 (01:22→01:42)
[2017-12-03] MEDS ORDERED: HYDROmorphone INJ* 1 MG/ML CARPUJECT SYRINGE ONE (01:24)
[2017-12-03] MEDS: oxyCODONE TAB* 5 MG TAB PO PRN ×2 (03:57→10:28)
[2017-12-03 05:57] LABS: ABS Basophils 0 10^3/ul (0-0.2); ABS Eosinophils 0.1 10^3/ul (0-0.6); ABS Lymphocytes 1.5 10^3/ul (1.0-4.8); ABS Monocytes 0.6 10^3/ul (0-0.8); ABS Neutrophils 3.7 10^3/ul (1.5-7.7); ABS Nucleated RBC 0 10^3/ul; Hematocrit 33 % (35-47); Hemoglobin 11.6 g/dl (12.0-16.0); Lymphocyte % 25.4 % (25-47); Mean Corpuscular HGB Conc 35 g/dl (31-36); Mean Corpuscular Hemoglobin 32 pg (27-31); Mean Corpuscular Volume 92 fL (80-97); Mean Platelet Volume 7.7 um3 (7.4-10.4); Nucleated Red Blood Cells % 0; Platelet Count 250 10^3/ul (150-450); Red Blood Count 3.58 10^6/ul (4.0-5.4); Red Cell Distribution Width 13 % (10.5-15)
[2017-12-03 06:15] LABS: EGFR Non-African American 110.7 (>60)
[2017-12-03] MEDS: Omeprazole CAP* 20 MG PO SCH (08:23)
[2017-12-03] MEDS: Senna TAB PO SCH ×2 (08:23→20:22)
[2017-12-03] MEDS: Potassium Chlor TAB* 10 MEQ TAB.ER PO SCH (08:23)
[2017-12-03] MEDS: Acetaminophen TAB* 325 MG PO PRN (08:23)
[2017-12-03] MEDS: Metoprolol Succinate XL TAB* 25 MG PO SCH (08:24)
[2017-12-03] MEDS: Cyclobenzaprine TAB* 10 MG PO PRN (08:24)
--- NOTE | 2017-12-03 08:45 | RAD ---
Indication: Post pacemaker placement. Back pain. Comparison: December 02, 2017 Technique: Sitting AP and lateral chest views. Report: RIGHT atrial and RIGHT ventricular level pacemaker leads appear unchanged accounting for difference in positioning. Cutaneous jessie over the LEFT chest wall control device. Upper normal heart size. Unremarkable central pulmonary vasculature. Low lung volumes with mild subsegmental atelectasis. Negative for pneumothorax. Prosthetic LEFT glenohumeral joint. IMPRESSION: No evidence for pneumothorax or pulmonary edema post pacemaker placement.
--- NOTE | 2017-12-03 09:46 | PN ---
Progress Note - Progress Note Date of Service: 12/03/17 SOAP: Subjective: patient resting comfortably with minimal complaints; no calf pain/SOB Objective: Vital Signs Temp Pulse Resp BP Pulse Ox 98.0 F 81 20 134/66 96 12/03/17 07:15 12/03/17 07:15 12/03/17 08:24 12/03/17 07:15 12/03/17 07:15 Laboratory Last Values WBC 6.0 10^3/ul (3.5-10.8) 12/03/17 05:38 RBC 3.58 10^6/ul (4.0-5.4) L 12/03/17 05:38 Hgb 11.6 g/dl (12.0-16.0) L 12/03/17 05:38 Hct 33 % (35-47) L 12/03/17 05:38 MCV 92 fL (80-97) 12/03/17 05:38 MCH 32 pg (27-31) H 12/03/17 05:38 MCHC 35 g/dl (31-36) 12/03/17 05:38 RDW 13 % (10.5-15) 12/03/17 05:38 Plt Count 250 10^3/ul (150-450) 12/03/17 05:38 MPV 7.7 um3 (7.4-10.4) 12/03/17 05:38 Neut % (Auto) 61.6 % (38-83) 12/03/17 05:38 Lymph % (Auto) 25.4 % (25-47) 12/03/17 05:38 [place] % (Auto) 10.6 % (0-7) H 12/03/17 05:38 Eos % (Auto) 2.0 % (0-6) 12/03/17 05:38 Baso % (Auto) 0.4 % (0-2) 12/03/17 05:38 Absolute Neuts (auto) 3.7 10^3/ul (1.5-7.7) 12/03/17 05:38 Absolute Lymphs (auto) 1.5 10^3/ul (1.0-4.8) 12/03/17 05:38 Absolute Monos (auto) 0.6 10^3/ul (0-0.8) 12/03/17 05:38 Absolute Eos (auto) 0.1 10^3/ul (0-0.6) 12/03/17 05:38 Absolute Basos (auto) 0 10^3/ul (0-0.2) 12/03/17 05:38 Absolute Nucleated RBC 0 10^3/ul 12/03/17 05:38 Nucleated RBC % 0 12/03/17 05:38 INR (Anticoag Therapy) 1.04 (0.77-1.02) H 12/02/17 05:56 Sodium 132 mmol/L (139-145) L 12/03/17 05:38 Potassium 3.9 mmol/L (3.5-5.0) 12/03/17 05:38 Chloride 102 mmol/L (101-111) 12/03/17 05:38 Carbon Dioxide 24 mmol/L (22-32) 12/03/17 05:38 Anion Gap 6 mmol/L (2-11) 12/03/17 05:38 BUN 8 mg/dL (6-24) 12/03/17 05:38 Creatinine 0.54 mg/dL (0.51-0.95) 12/03/17 05:38 Est GFR ( Amer) 142.3 (>60) 12/03/17 05:38 Est GFR (Non-Af Amer) 110.7 (>60) 12/03/17 05:38 BUN/Creatinine Ratio 14.8 (8-20) 12/03/17 05:38 Glucose 102 mg/dL (70-100) H 12/03/17 05:38 Calcium 8.5 mg/dL (8.6-10.3) L 12/03/17 05:38 Magnesium 2.0 mg/dL (1.9-2.7) 12/01/17 12:30 Total Bilirubin 0.60 mg/dL (0.2-1.0) 12/01/17 12:30 AST 16 U/L (13-39) 12/01/17 12:30 ALT 19 U/L (7-52) 12/01/17 12:30 Alkaline Phosphatase 77 U/L (34-104) 12/01/17 12:30 Troponin I 0.01 ng/mL (<0.04) 12/01/17 12:30 B-Natriuretic Peptide 13 pg/mL (-100) 12/01/17 12:30 Total Protein 7.0 g/dL (6.4-8.9) 12/01/17 12: Albumin 3.9 g/dL (3.2-5.2) 12/01/17 12: Globulin 3.1 g/dL (2-4) 12/01/17 12:30 Albumin/Globulin Ratio 1.3 (1-3) 12/01/17 12: TSH 0.97 mcIU/mL (0.34-5.60) 12/01/17 12: Urine Color Yellow 12/02/17 00:09 Urine Appearance Cloudy 12/02/17 00:09 Urine pH 6.0 (5-9) 12/02/17 00:09 Ur Specific [place] 1.006 (1.010-1.030) L 12/02/17 00:09 Urine Protein Negative (Negative) 12/02/17 00:09 Urine Ketones Trace (Negative) A 12/02/17 00:09 Urine Blood Negative (Negative) 12/02/17 00:09 Urine Nitrate Negative (Negative) 12/02/17 00:09 Urine Bilirubin Negative (Negative) 12/02/17 00:09 Urine Urobilinogen Negative (Negative) 12/02/17 00:09 Ur Leukocyte Esterase 3+ (Negative) A 12/02/17 00:09 Urine WBC (Auto) 3+(>20/hpf) (Absent) A 12/02/17 00:09 Urine RBC (Auto) 1+(3-5/hpf) (Absent) A 12/02/17 00:09 Ur Squamous Epith Cells Present (Absent) A 12/02/17 00:09 Ur Transition Epith Cell Present (Absent) A 12/02/17 00:09 Ur Renal Epithelial Cell Present (Absent) A 12/02/17 00:09 Urine Bacteria 1+ (Absent) A 12/02/17 00:09 Urine Glucose Negative (Negative) 12/02/17 00:09 PE: calf soft/ non tender, able to move toes and has intact sensation to toes; splint intact Assessment: left closed ankle trimal fx Plan: 1) NWB LLE 2) CT completed for surgical planning 3) hospitalist co-managing 4) Plan OR Tuesday with Suleiman for ORIF left ankle
--- NOTE | 2017-12-03 13:27 | PN ---
Subjective Date of Service: 12/03/17 - CC: ankle pain Interval History: Date of admission and consult 12/01/2017 PMD: [facility], Dr. Gastelum Service: Hospitalist The patient is feeling well, incision less tender than yesterday. No SOB. Per patient she has contacted the [place] [facility] [place] about possible transfer there. Medications Active Medications: Acetaminophen (Tylenol Tab*) 650 mg PO Q4H PRN PRN Reason: PAIN Last Admin: 12/03/17 08:23 Dose: 650 mg Albuterol (Ventolin Hfa Inhaler*) 2 puff INH Q4H PRN PRN Reason: SHORTNESS OF BREATH Atropine Sulfate (Atropine Syringe*) 1 mg IV ONCE PRN PRN Reason: HR <35 OR SYMPTOMATIC Last Admin: 12/01/17 21:50 Dose: 1 mg Benzonatate (Tessalon Cap*) 100 mg PO TID PRN PRN Reason: COUGH Cyclobenzaprine HCl (Flexeril Tab*) 5 mg PO TID PRN PRN Reason: SPASMS - MUSCLE Last Admin: 12/03/17 08:24 Dose: 5 mg Dexamethasone Sodium Phosphate (Decadron Iv*) 8 mg IV SLOW PU ONCE ONE Stop: 12/05/17 06:01 Famotidine (Pepcid Iv*) 20 mg IV ONCE ONE Stop: 12/05/17 06:01 Hydroxyzine HCl (Atarax Tab*) 25 mg PO TID PRN PRN Reason: ITCHING Lactated Ringer's (Lactated Ringers 1000 Ml Bag*) 1,000 mls @ 125 mls/hr IV PER RATE MICK Lidocaine/Sodium Bicarbonate (Buffered Lidocaine 0.9% Syrin*) 0.2 ml INTRADERM ONCE ONE Stop: 12/05/17 06:01 Metoprolol Succinate (Toprol Xl Tab*) 25 mg PO DAILY [facility] Last Admin: 12/03/17 08:24 Dose: 25 mg Omeprazole (Prilosec Cap*) 20 mg PO DAILY [facility] PRN Reason: Protocol Last Admin: 12/03/17 08:23 Dose: 20 mg Oxycodone HCl (Roxycodone Tab*) 10 mg PO Q4H PRN PRN Reason: PAIN Last Admin: 12/03/17 10:28 Dose: 10 mg Polyethylene Glycol/Electrolytes (Miralax*) 17 gm PO DAILY PRN PRN Reason: CONSTIPATION Potassium Chloride (Klor Con Er Tab*) 10 meq PO DAILY [facility] Last Admin: 12/03/17 08:23 Dose: 10 meq Pramipexole Dihydrochloride (Mirapex Tab*) 0.25 mg PO BEDTIME@2100 [facility] Senna (Senokot Tab*) 1 tab PO BID [facility] Last Admin: 12/03/17 08:23 Dose: 1 tab Objective Vital Signs: Temp Pulse Resp BP Pulse Ox 98.4 F 82 20 108/53 96 12/03/17 10:56 12/03/17 10:56 12/03/17 13:06 12/03/17 10:56 12/03/17 13:06 Oxygen Devices in Use Now: None Appearance: Lying at 30 degrees, comfortable. Eyes: No Scleral Icterus, PERRLA Ears/Nose/Mouth/Throat: Clear Oropharnyx, Mucous Membranes Moist Neck: NL Appearance and Movements; NL JVP, Trachea Midline Respiratory: Symmetrical Chest Expansion and Respiratory Effort, Clear to Auscultation Cardiovascular: NL Sounds; No Murmurs; No JVD, RRR - incision L subclavian fossa no hematoma, bleeding or infection. Abdominal: NL Sounds; No Tenderness; No Distention Extremities: No Clubbing, Cyanosis Skin: No Rash or Ulcers, - - left ankle in brace Neurological: Alert and Oriented x 3 Lines/Tubes/Other Access: Clean, Dry and Intact Peripheral IV Laboratory Results: 12/03/17 05:38 12/03/17 05:38 INR (Anticoag Therapy) 1.04 (0.77-1.02) H 12/02/17 05:56 Total Bilirubin 0.60 mg/dL (0.2-1.0) 12/01/17 12:30 AST 16 U/L (13-39) 12/01/17 12:30 ALT 19 U/L (7-52) 12/01/17 12:30 Alkaline Phosphatase 77 U/L (34-104) 12/01/17 12:30 B-Natriuretic Peptide 13 pg/mL (-100) 12/01/17 12:30 Total Protein 7.0 g/dL (6.4-8.9) 12/01/17 12:30 Albumin 3.9 g/dL (3.2-5.2) 12/01/17 12:30 Globulin 3.1 g/dL (2-4) 12/01/17 12:30 Albumin/Globulin Ratio 1.3 (1-3) 12/01/17 12:30 TSH 0.97 mcIU/mL (0.34-5.60) 12/01/17 12:30 Diagnostic Imaging: ECHO 11/30/17 (Dr Ovalle) EF 65%, hyperdynamic. CXR 12/03/17: No pneumthorax, good lead placement. EKG Data: Pacemaker interogation: AAIR/DDDR lower rate 50 bpm Sense: P waves 1.0 mv, A pacin.75 V @ 0.4 ms R waves 10.4 mv V pacin.75 V @ 0.4 ms. Assessment/Plan Radha Madrid is a 72 year old woman with recurrent syncope with injury and without prodrome. She has documented severe sinus bradycardia and 7 second symptomatic pause while in pain/vagal response in the ER. POD #1 dual chamber pacer implantation. Changed antihypertensive meds for vagal syncope and hyperdynamic ventricle and BP looks good. SSS/Pacer: Good function. Oral antibiotics for 3 days. Wound check and jessie out next week [facility] [place] Urinary retention/Vagal tone: UC no growth. Bradycardia improved iwth alexander and resolution of retention. Could still faint from BP lowering if retention issue not managed. Fracture/sx: Stable for surgery from a cardiac standpoint.
--- NOTE | 2017-12-03 14:53 | PN ---
Subjective Date of Service: 12/03/17 Interval History: Spasms in back and legs overnight - started on flexil with resolution pain well controlled. Has no complaints Objective Active Medications: Acetaminophen (Tylenol Tab*) 650 mg PO Q4H PRN PRN Reason: PAIN Last Admin: 12/03/17 08:23 Dose: 650 mg Albuterol (Ventolin Hfa Inhaler*) 2 puff INH Q4H PRN PRN Reason: SHORTNESS OF BREATH Atropine Sulfate (Atropine Syringe*) 1 mg IV ONCE PRN PRN Reason: HR <35 OR SYMPTOMATIC Last Admin: 12/01/17 21:50 Dose: 1 mg Benzonatate (Tessalon Cap*) 100 mg PO TID PRN PRN Reason: COUGH Clindamycin HCl (Cleocin Cap*) 150 mg PO Q6HR [facility] Stop: 12/05/17 18:01 Cyclobenzaprine HCl (Flexeril Tab*) 5 mg PO TID PRN PRN Reason: SPASMS - MUSCLE Last Admin: 12/03/17 08:24 Dose: 5 mg Dexamethasone Sodium Phosphate (Decadron Iv*) 8 mg IV SLOW PU ONCE ONE Stop: 12/05/17 06:01 Famotidine (Pepcid Iv*) 20 mg IV ONCE ONE Stop: 12/05/17 06:01 Hydroxyzine HCl (Atarax Tab*) 25 mg PO TID PRN PRN Reason: ITCHING Lactated Ringer's (Lactated Ringers 1000 Ml Bag*) 1,000 mls @ 125 mls/hr IV PER RATE [facility] Lidocaine/Sodium Bicarbonate (Buffered Lidocaine 0.9% Syrin*) 0.2 ml INTRADERM ONCE ONE Stop: 12/05/17 06:01 Metoprolol Succinate (Toprol Xl Tab*) 25 mg PO DAILY [facility] Last Admin: 12/03/17 08:24 Dose: 25 mg Omeprazole (Prilosec Cap*) 20 mg PO DAILY MICK PRN Reason: Protocol Last Admin: 12/03/17 08:23 Dose: 20 mg Oxycodone HCl (Roxycodone Tab*) 10 mg PO Q4H PRN PRN Reason: PAIN Last Admin: 12/03/17 10:28 Dose: 10 mg Polyethylene Glycol/Electrolytes (Miralax*) 17 gm PO DAILY PRN PRN Reason: CONSTIPATION Potassium Chloride (Klor Con Er Tab*) 10 meq PO DAILY [facility] Last Admin: 12/03/17 08:23 Dose: 10 meq Pramipexole Dihydrochloride (Mirapex Tab*) 0.25 mg PO BEDTIME@2100 [facility] Senna (Senokot Tab*) 1 tab PO BID [facility] Last Admin: 12/03/17 08:23 Dose: 1 tab Vital Signs - 8 hr 12/03/17 12/03/17 12/03/17 07:15 08:15 08:24 Temperature 98.0 F Pulse Rate 81 Respiratory 16 18 20 Rate Blood Pressure 134/66 (mmHg) O2 Sat by Pulse 96 96 Oximetry 12/03/17 12/03/17 12/03/17 10:28 10:56 13:06 Temperature 98.4 F Pulse Rate 82 Respiratory 17 16 20 Rate Blood Pressure 108/53 (mmHg) O2 Sat by Pulse 96 96 Oximetry Oxygen Devices in Use Now: None Appearance: NAD Eyes: No Scleral Icterus, PERRLA Ears/Nose/Mouth/Throat: Clear Oropharnyx, - - dry MM Neck: NL Appearance and Movements; NL JVP, Trachea Midline Respiratory: Symmetrical Chest Expansion and Respiratory Effort, Clear to Auscultation Cardiovascular: RRR, - - 2/6 THELMA, PPM Left chest wall, covered Abdominal: NL Sounds; No Tenderness; No Distention, No Hepatosplenomegaly Lymphatic: No Cervical Adenopathy Extremities: No Edema, - - left leg casted, toes n/v intact Neurological: Alert and Oriented x 3 Result Diagrams: 12/03/17 05:38 12/03/17 05:38 Additional Lab and Data: Lab Results 12/01/17 12/01/17 12/01/17 Range/Units 12:30 12:30 12:30 WBC 5.2 (3.5-10.8) 10^3/ul RBC 4.01 (4.0-5.4) 10^6/ul Hgb 12.6 (12.0-16.0) g/dl Hct 37 (35-47) % MCV 91 (80-97) fL MCH 31 (27-31) pg MCHC 34 (31-36) g/dl RDW 13 (10.5-15) % Plt Count 317 (150-450) 10^3/ul MPV 7.5 (7.4-10.4) um3 Neut % (Auto) 77.8 (38-83) % Lymph % (Auto) 15.4 L (25-47) % [place] % (Auto) 6.0 (0-7) % Eos % (Auto) 0.4 (0-6) % Baso % (Auto) 0.4 (0-2) % Absolute Neuts (auto) 4.1 (1.5-7.7) 10^3/ul Absolute Lymphs (auto) 0.8 L (1.0-4.8) 10^3/ul Absolute Monos (auto) 0.3 (0-0.8) 10^3/ul Absolute Eos (auto) 0 (0-0.6) 10^3/ul Absolute Basos (auto) 0 (0-0.2) 10^3/ul Absolute Nucleated RBC 0 10^3/ul Nucleated RBC % 0 Sodium 129 L (139-145) mmol/L Potassium 4.0 (3.5-5.0) mmol/L Chloride 96 L (101-111) mmol/L Carbon Dioxide 24 (22-32) mmol/L Anion Gap 9 (2-11) mmol/L BUN 10 (6-24) mg/dL Creatinine 0.62 (0.51-0.95) mg/dL Est GFR ( Amer) 121.3 (>60) Est GFR (Non-Af Amer) 94.4 (>60) BUN/Creatinine Ratio 16.1 (8-20) Glucose 104 H (70-100) mg/dL Calcium 9.3 (8.6-10.3) mg/dL Magnesium 2.0 (1.9-2.7) mg/dL Total Bilirubin 0.60 (0.2-1.0) mg/dL AST 16 (13-39) U/L ALT 19 (7-52) U/L Alkaline Phosphatase 77 (34-104) U/L Troponin I 0.01 (<0.04) ng/mL B-Natriuretic Peptide 13 ( - 100) pg/mL Total Protein 7.0 (6.4-8.9) g/dL Albumin 3.9 (3.2-5.2) g/dL Globulin 3.1 (2-4) g/dL Albumin/Globulin Ratio 1.3 (1-3) TSH 0.97 (0.34-5.60) mcIU/mL Microbiology and Other Data: Microbiology 12/01/17 18:20 Nasal Screen MRSA (PCR)(YAJAIRA) - Final Nasal Mrsa Not Detected Assess/Plan/Problems-Billing Ms Madrid is a 72 yo F who has a h/o HTN, HLD and past DVT/PE who presented to the ER after having a syncopal episode at home where she sustained a L bimalleolar ankle fracture with stay notable for urinary retention, prolonged pauses of >6sec s/p PPM 12/02 - Patient Problems (1) Trimalleolar fracture of ankle, closed Comment: The ankle was set by Dr. Ann in the ER. Plan for ORIF with Dr. Bearden 12/05/17. Continue pain control. (2) Syncope Comment: Secondary to prolonged sinus pauses s/p PPM 12/02 (3) Urinary retention Comment: alexander in place trial void after OR (4) HTN (hypertension) Comment: BP is under good control on lisinopril (5) History of deep venous thrombosis or pulmonary embolus Comment: noted DVT ppx implimented (6) Hyponatremia Comment: Holding HCTZ. (7) DVT prophylaxis Comment: SQH
--- NOTE | 2017-12-03 15:46 | OP ---
CC: [facility] OPERATIVE REPORT: DATE OF OPERATION: 12/02/17 DATE OF : 43 SURGEON: Madelaine Malone MD ANESTHESIA: MAC. PRE-OP DIAGNOSIS: Sick sinus syndrome with syncope. POST-OP DIAGNOSIS: Sick sinus syndrome with syncope. OPERATIVE PROCEDURE: Dual chamber pacemaker implantation. INDICATIONS: Risks and benefits of the procedure were discussed with the patient in the presence of her , sister and daughter, and the patient and family were amenable to proceeding. ESTIMATED BLOOD LOSS: Less than 5 cc. COMPLICATIONS: None. DESCRIPTION OF PROCEDURE: The patient is right handed and the left subclavian fossa was prepped and draped in the usual sterile fashion. A time-out procedure was called. Following this, the patient r eceived 10 cc of radiopaque dye in the left upper extremity outlining the left axillary and left subc lavian vein. Following this, the patient received 1% lidocaine in the left subclavian fossa for local anesthesia in addition to a total of 6 mg of Versed and 50 mcg of fentanyl for sedation throughout t he procedure. Following local anesthesia, using a 10 blade knife, a 2.5 cm incision was made in the left subclavian fossa and using Bovie and blunt dissection, was extended to the level of the pectoral is muscle. Additional lidocaine was infused inferiorly and medially. A small mike was made in the fa scia with a Metzenbaum scissors, and using blunt dissection a pocket was fashioned. Using a modified Seldinger technique, the left subclavian vein was cannulated and using fluoroscopic guidance a guidewire was inserted and guided into the right atrium. With a second needle, the proced ure was repeated with a second guidewire inserted. Using an introducer technique, the right ventricular lead was guided into the right ventricular apex and actively fixed in place. Pacing and sensing thresholds were checked and found to be good. Using the second guidewire and an introducer technique, the atrial lead was guided right into the rig ht atrial appendage, actively fixed in place. Pacing and sensing thresholds were checked and found t o be good. The leads were then sutured to the pocket using 0 silk suture and the pocket was copiousl y irrigated. The leads were then attached to the generator. The generator was placed in the pocket and the incision was closed using 2 layers of resorbable suture, 2-0 followed by 4-0, followed by sta ples and external dressing. The system is an MRI compatible Medtronic system. The generator is a [employer] model A2DR1, serial number [id number]. The right atrial lead is a Medt ronic model 5076-45, serial number [id number]. Ventricularly, it is a Medtronic model 5076-52, seria l number [id number]. P-waves were sensed at 5.1 mV with atrial lead impedance of 984 ohms and an atrial pacing threshold o f 0.5 V at 0.5 ms. R-waves were sensed at 7.3 mV with a ventricular lead impedance of 865 ohms and a ventricular pacing threshold of 0.6 V at 0.5 milliseconds. The patient was hemodynamically stable throughout the procedure in Recovery and transfer. [id number]/[facility] #: [id number]
[2017-12-03] MEDS: Clindamycin CAP* 150 MG PO SCH ×2 (18:13→23:57)
[2017-12-03] MEDS: Pramipexole TAB* 0.5 MG PO SCH (20:21)
[2017-12-03] MEDS: Heparin VIAL(*) 5000 UNITS/ML VIAL (FIVE THOUSAND) SUBCUT SCH (20:24)
[2017-12-04] MEDS: Clindamycin CAP* 150 MG PO SCH ×4 (05:27→23:20)
[2017-12-04] MEDS: Heparin VIAL(*) 5000 UNITS/ML VIAL (FIVE THOUSAND) SUBCUT SCH ×3 (05:28→23:22)
[2017-12-04] MEDS: Cyclobenzaprine TAB* 10 MG PO PRN ×2 (09:19→23:21)
[2017-12-04] MEDS: Acetaminophen TAB* 325 MG PO PRN (09:19)
[2017-12-04] MEDS: Senna TAB PO SCH ×2 (09:19→23:20)
[2017-12-04] MEDS: Metoprolol Succinate XL TAB* 25 MG PO SCH (09:19)
[2017-12-04] MEDS: Omeprazole CAP* 20 MG PO SCH (09:19)
[2017-12-04] MEDS: Potassium Chlor TAB* 10 MEQ TAB.ER PO SCH (09:19)
[2017-12-04] MEDS ORDERED: Magnesium CITRATE* 300 ML BTL PO ONE (09:44)
--- NOTE | 2017-12-04 09:47 | PN ---
Subjective Date of Service: 12/04/17 Interval History: Spasms resolved No complaints No BM for 1 week Objective Active Medications: Acetaminophen (Tylenol Tab*) 650 mg PO Q4H PRN PRN Reason: PAIN Last Admin: 12/04/17 09:19 Dose: 650 mg Albuterol (Ventolin Hfa Inhaler*) 2 puff INH Q4H PRN PRN Reason: SHORTNESS OF BREATH Atropine Sulfate (Atropine Syringe*) 1 mg IV ONCE PRN PRN Reason: HR <35 OR SYMPTOMATIC Last Admin: 12/01/17 21:50 Dose: 1 mg Benzonatate (Tessalon Cap*) 100 mg PO TID PRN PRN Reason: COUGH Clindamycin HCl (Cleocin Cap*) 150 mg PO Q6HR [facility] Stop: 12/05/17 18:01 Last Admin: 12/04/17 05:27 Dose: 150 mg Cyclobenzaprine HCl (Flexeril Tab*) 5 mg PO TID PRN PRN Reason: SPASMS - MUSCLE Last Admin: 12/04/17 09:19 Dose: 5 mg Dexamethasone Sodium Phosphate (Decadron Iv*) 8 mg IV SLOW PU ONCE ONE Stop: 12/05/17 06:01 Docusate Sodium (Colace Cap*) 200 mg PO DAILY [facility] Famotidine (Pepcid Iv*) 20 mg IV ONCE ONE Stop: 12/05/17 06:01 Heparin Sodium (Porcine) (Heparin Vial(*)) 5,000 units SUBCUT Q8HR [facility] Last Admin: 12/04/17 05:28 Dose: 5,000 units Hydroxyzine HCl (Atarax Tab*) 25 mg PO TID PRN PRN Reason: ITCHING Lactated Ringer's (Lactated Ringers 1000 Ml Bag*) 1,000 mls @ 125 mls/hr IV PER RATE [facility] Lidocaine/Sodium Bicarbonate (Buffered Lidocaine 0.9% Syrin*) 0.2 ml INTRADERM ONCE ONE Stop: 12/05/17 06:01 Magnesium Citrate (Citrate Of Magnesia*) 150 ml PO ONCE ONE Stop: 12/04/17 09:45 Metoprolol Succinate (Toprol Xl Tab*) 25 mg PO DAILY [facility] Last Admin: 12/04/17 09:19 Dose: 25 mg Omeprazole (Prilosec Cap*) 20 mg PO DAILY [facility] PRN Reason: Protocol Last Admin: 12/04/17 09:19 Dose: 20 mg Oxycodone HCl (Roxycodone Tab*) 10 mg PO Q4H PRN PRN Reason: PAIN Last Admin: 12/03/17 10:28 Dose: 10 mg Polyethylene Glycol/Electrolytes (Miralax*) 17 gm PO DAILY PRN PRN Reason: CONSTIPATION Last Admin: 12/04/17 09:18 Dose: 17 gm Potassium Chloride (Klor Con Er Tab*) 10 meq PO DAILY [facility] Last Admin: 12/04/17 09:19 Dose: 10 meq Pramipexole Dihydrochloride (Mirapex Tab*) 0.25 mg PO BEDTIME@2100 [facility] Last Admin: 12/03/17 20:21 Dose: 0.25 mg Senna (Senokot Tab*) 1 tab PO BID [facility] Last Admin: 12/04/17 09:19 Dose: 1 tab Vital Signs - 8 hr 12/04/17 12/04/17 12/04/17 02:00 03:30 06:00 Temperature 98.6 F Pulse Rate 89 Respiratory 20 Rate Blood Pressure 132/75 (mmHg) O2 Sat by Pulse 96 99 99 Oximetry 12/04/17 12/04/17 07:29 09:19 Temperature 98.5 F Pulse Rate 80 Respiratory 20 15 Rate Blood Pressure 120/63 (mmHg) O2 Sat by Pulse 98 Oximetry Oxygen Devices in Use Now: None Appearance: NAD Eyes: No Scleral Icterus, PERRLA Ears/Nose/Mouth/Throat: NL Teeth, Lips, Gums, Clear Oropharnyx Neck: NL Appearance and Movements; NL JVP, Trachea Midline Respiratory: Symmetrical Chest Expansion and Respiratory Effort, Clear to Auscultation Cardiovascular: RRR, - - soft 2/6 THELMA Lymphatic: No Cervical Adenopathy Extremities: No Edema, - - left LE casted, toes nv intact Neurological: Alert and Oriented x 3 Result Diagrams: 12/03/17 05:38 12/03/17 05:38 Additional Lab and Data: Lab Results 12/01/17 12/01/17 12/01/17 Range/Units 12:30 12:30 12:30 WBC 5.2 (3.5-10.8) 10^3/ul RBC 4.01 (4.0-5.4) 10^6/ul Hgb 12.6 (12.0-16.0) g/dl Hct 37 (35-47) % MCV 91 (80-97) fL MCH 31 (27-31) pg MCHC 34 (31-36) g/dl RDW 13 (10.5-15) % Plt Count 317 (150-450) 10^3/ul MPV 7.5 (7.4-10.4) um3 Neut % (Auto) 77.8 (38-83) % Lymph % (Auto) 15.4 L (25-47) % [place] % (Auto) 6.0 (0-7) % Eos % (Auto) 0.4 (0-6) % Baso % (Auto) 0.4 (0-2) % Absolute Neuts (auto) 4.1 (1.5-7.7) 10^3/ul Absolute Lymphs (auto) 0.8 L (1.0-4.8) 10^3/ul Absolute Monos (auto) 0.3 (0-0.8) 10^3/ul Absolute Eos (auto) 0 (0-0.6) 10^3/ul Absolute Basos (auto) 0 (0-0.2) 10^3/ul Absolute Nucleated RBC 0 10^3/ul Nucleated RBC % 0 Sodium 129 L (139-145) mmol/L Potassium 4.0 (3.5-5.0) mmol/L Chloride 96 L (101-111) mmol/L Carbon Dioxide 24 (22-32) mmol/L Anion Gap 9 (2-11) mmol/L BUN 10 (6-24) mg/dL Creatinine 0.62 (0.51-0.95) mg/dL Est GFR ( Amer) 121.3 (>60) Est GFR (Non-Af Amer) 94.4 (>60) BUN/Creatinine Ratio 16.1 (8-20) Glucose 104 H (70-100) mg/dL Calcium 9.3 (8.6-10.3) mg/dL Magnesium 2.0 (1.9-2.7) mg/dL Total Bilirubin 0.60 (0.2-1.0) mg/dL AST 16 (13-39) U/L ALT 19 (7-52) U/L Alkaline Phosphatase 77 (34-104) U/L Troponin I 0.01 (<0.04) ng/mL B-Natriuretic Peptide 13 ( - 100) pg/mL Total Protein 7.0 (6.4-8.9) g/dL Albumin 3.9 (3.2-5.2) g/dL Globulin 3.1 (2-4) g/dL Albumin/Globulin Ratio 1.3 (1-3) TSH 0.97 (0.34-5.60) mcIU/mL Microbiology and Other Data: Microbiology 12/01/17 18:20 Nasal Screen MRSA (PCR)(YAJAIRA) - Final Nasal Mrsa Not Detected Assess/Plan/Problems-Billing Ms Madrid is a 72 yo F who has a h/o HTN, HLD and past DVT/PE who presented to the ER after having a syncopal episode at home where she sustained a L TRImalleolar ankle fracture with stay notable for urinary retention, prolonged pauses of >6sec s/p PPM 12/02 - Patient Problems (1) Trimalleolar fracture of ankle, closed Comment: The ankle was set by Dr. Ann in the ER. Plan for ORIF with Dr. Bearden 12/05/17. Continue pain control. (2) Syncope Comment: Secondary to prolonged sinus pauses s/p PPM 12/02 (3) Urinary retention Comment: alexander in place trial void after OR (4) HTN (hypertension) Comment: BP is under good control on lisinopril (5) History of deep venous thrombosis or pulmonary embolus Comment: noted DVT ppx implimented (6) Hyponatremia Comment: Holding HCTZ. (7) Constipation Comment: Addec olace to senna Magcitrate x 1 today miralax PRN reports this has been a probelm in the past (8) DVT prophylaxis Comment: [facility]
--- NOTE | 2017-12-04 10:21 | PN ---
Progress Note - Progress Note Date of Service: 12/04/17 SOAP: Subjective: resting comfortably with no complaints Objective: Vital Signs Temp Pulse Resp BP Pulse Ox 98.5 F 80 15 120/63 98 12/04/17 07:29 12/04/17 07:29 12/04/17 09:19 12/04/17 07:29 12/04/17 07:29 Laboratory Last Values WBC 6.0 10^3/ul (3.5-10.8) 12/03/17 05:38 RBC 3.58 10^6/ul (4.0-5.4) L 12/03/17 05:38 Hgb 11.6 g/dl (12.0-16.0) L 12/03/17 05:38 Hct 33 % (35-47) L 12/03/17 05:38 MCV 92 fL (80-97) 12/03/17 05:38 MCH 32 pg (27-31) H 12/03/17 05:38 MCHC 35 g/dl (31-36) 12/03/17 05:38 RDW 13 % (10.5-15) 12/03/17 05:38 Plt Count 250 10^3/ul (150-450) 12/03/17 05:38 MPV 7.7 um3 (7.4-10.4) 12/03/17 05:38 Neut % (Auto) 61.6 % (38-83) 12/03/17 05:38 Lymph % (Auto) 25.4 % (25-47) 12/03/17 05:38 Surry % (Auto) 10.6 % (0-7) H 12/03/17 05:38 Eos % (Auto) 2.0 % (0-6) 12/03/17 05:38 Baso % (Auto) 0.4 % (0-2) 12/03/17 05:38 Absolute Neuts (auto) 3.7 10^3/ul (1.5-7.7) 12/03/17 05:38 Absolute Lymphs (auto) 1.5 10^3/ul (1.0-4.8) 12/03/17 05:38 Absolute Monos (auto) 0.6 10^3/ul (0-0.8) 12/03/17 05:38 Absolute Eos (auto) 0.1 10^3/ul (0-0.6) 12/03/17 05:38 Absolute Basos (auto) 0 10^3/ul (0-0.2) 12/03/17 05:38 Absolute Nucleated RBC 0 10^3/ul 12/03/17 05:38 Nucleated RBC % 0 12/03/17 05:38 INR (Anticoag Therapy) 1.04 (0.77-1.02) H 12/02/17 05:56 Sodium 132 mmol/L (139-145) L 12/03/17 05:38 Potassium 3.9 mmol/L (3.5-5.0) 12/03/17 05:38 Chloride 102 mmol/L (101-111) 12/03/17 05:38 Carbon Dioxide 24 mmol/L (22-32) 12/03/17 05:38 Anion Gap 6 mmol/L (2-11) 12/03/17 05:38 BUN 8 mg/dL (6-24) 12/03/17 05:38 Creatinine 0.54 mg/dL (0.51-0.95) 12/03/17 05:38 Est GFR ( Amer) 142.3 (>60) 12/03/17 05:38 Est GFR (Non-Af Amer) 110.7 (>60) 12/03/17 05:38 BUN/Creatinine Ratio 14.8 (8-20) 12/03/17 05:38 Glucose 102 mg/dL (70-100) H 12/03/17 05:38 Calcium 8.5 mg/dL (8.6-10.3) L 12/03/17 05:38 Magnesium 2.0 mg/dL (1.9-2.7) 12/01/17 12:30 Total Bilirubin 0.60 mg/dL (0.2-1.0) 12/01/17 12:30 AST 16 U/L (13-39) 12/01/17 12:30 ALT 19 U/L (7-52) 12/01/17 12:30 Alkaline Phosphatase 77 U/L (34-104) 12/01/17 12:30 Troponin I 0.01 ng/mL (<0.04) 12/01/17 12:30 B-Natriuretic Peptide 13 pg/mL (-100) 12/01/17 12:30 Total Protein 7.0 g/dL (6.4-8.9) 12/01/17 12: Albumin 3.9 g/dL (3.2-5.2) 12/01/17 12: Globulin 3.1 g/dL (2-4) 12/01/17 12:30 Albumin/Globulin Ratio 1.3 (1-3) 12/01/17 12: TSH 0.97 mcIU/mL (0.34-5.60) 12/01/17 12:30 Urine Color Yellow 12/02/17 00:09 Urine Appearance Cloudy 12/02/17 00:09 Urine pH 6.0 (5-9) 12/02/17 00:09 Ur Specific Cutler 1.006 (1.010-1.030) L 12/02/17 00:09 Urine Protein Negative (Negative) 12/02/17 00:09 Urine Ketones Trace (Negative) A 12/02/17 00:09 Urine Blood Negative (Negative) 12/02/17 00:09 Urine Nitrate Negative (Negative) 12/02/17 00:09 Urine Bilirubin Negative (Negative) 12/02/17 00:09 Urine Urobilinogen Negative (Negative) 12/02/17 00:09 Ur Leukocyte Esterase 3+ (Negative) A 12/02/17 00:09 Urine WBC (Auto) 3+(>20/hpf) (Absent) A 12/02/17 00:09 Urine RBC (Auto) 1+(3-5/hpf) (Absent) A 12/02/17 00:09 Ur Squamous Epith Cells Present (Absent) A 12/02/17 00:09 Ur Transition Epith Cell Present (Absent) A 12/02/17 00:09 Ur Renal Epithelial Cell Present (Absent) A 12/02/17 00:09 Urine Bacteria 1+ (Absent) A 12/02/17 00:09 Urine Glucose Negative (Negative) 12/02/17 00:09 PE: LLE splint intact and clean; able to move toes with intact sensation, no calf tenderness Assessment: left closed trimal ankle fracture Plan: 1) Heparin for DVT prophylaxis 2) NWB LLE 3) NPO after midnight- OR tomorrow with Suleiman for ORIF left ankle
[2017-12-04] MEDS: Docusate CAP* 100 MG PO SCH (11:59)
[2017-12-04] MEDS: Pramipexole TAB* 0.5 MG PO SCH (23:20)
[2017-12-04] MEDS: oxyCODONE TAB* 5 MG TAB PO PRN (23:22)
[2017-12-05] MEDS ORDERED: Buffered Lidocaine 0.9% SYRIN* 5 ML/SYR SYRINGE INTRADERM ONE (06:00)
[2017-12-05] MEDS ORDERED: Famotidine IV* 10 MG/ML 2 ML (20 mg) IV ONE (06:00)
[2017-12-05] MEDS ORDERED: Dexamethasone IV* 4 MG/ML 1 ML (4 MG) IV SLOW PU ONE (06:00)
[2017-12-05] MEDS: Clindamycin CAP* 150 MG PO SCH ×2 (06:18→16:34)
[2017-12-05] MEDS: Heparin VIAL(*) 5000 UNITS/ML VIAL (FIVE THOUSAND) SUBCUT SCH ×3 (07:55→21:50)
[2017-12-05] MEDS: Docusate CAP* 100 MG PO SCH (07:55)
[2017-12-05] MEDS: Potassium Chlor TAB* 10 MEQ TAB.ER PO SCH (07:56)
[2017-12-05] MEDS: Omeprazole CAP* 20 MG PO SCH (07:56)
[2017-12-05] MEDS: Senna TAB PO SCH ×2 (07:56→21:50)
[2017-12-05] MEDS: Metoprolol Succinate XL TAB* 25 MG PO SCH (08:22)
[2017-12-05] MEDS ORDERED: fentaNYL* 50 MCG/ML 2 ML VIAL (100 MCG VIAL) ONE (13:00)
[2017-12-05] MEDS ORDERED: Midazolam* 1 MG/ML 5 ML VIAL (5 MG) ONE (13:00)
[2017-12-05] MEDS ORDERED: Propofol* 10 MG/ML 20 ML BTL IV PUSH ONE (13:02)
[2017-12-05] MEDS ORDERED: Chloroprocaine 3%* 20 ML VIAL ONE (13:02)
[2017-12-05] MEDS ORDERED: Ondansetron INJ* 2 MG/ML VIAL ONE (13:02)
[2017-12-05] MEDS ORDERED: Dexamethasone IV* 4 MG/ML 1 ML (4 MG) ONE (13:15)
[2017-12-05] MEDS ORDERED: Famotidine IV* 10 MG/ML 2 ML (20 mg) ONE (13:15)
[2017-12-05] MEDS ORDERED: Bupivacaine 0.5%* 50 ML VIAL ONE (13:40)
[2017-12-05] MEDS ORDERED: Clindamycin 600 MG IVPREMIX(* 600 MG/50 ML SDV ONE (13:42)
[2017-12-05] MEDS ORDERED: DiMENhydriNATE IV* 50 MG/ML VIAL IV PUSH PRN (14:43)
[2017-12-05] MEDS ORDERED: HYDROmorphone INJ* 1 MG/ML CARPUJECT SYRINGE IV PRN (14:43)
[2017-12-05] MEDS ORDERED: Ondansetron INJ* 2 MG/ML VIAL IV PRN (14:43)
[2017-12-05] MEDS ORDERED: Naloxone* 0.4 MG/ML 1 ML VIAL IV PRN (14:43)
[2017-12-05] MEDS ORDERED: fentaNYL* 50 MCG/ML 2 ML VIAL (100 MCG VIAL) IV PRN (14:43)
[2017-12-05] MEDS ORDERED: Bisacodyl SUPP* 10 MG SUPP PR PRN (16:24)
[2017-12-05] MEDS: Cyclobenzaprine TAB* 10 MG PO PRN ×2 (16:33→21:48)
[2017-12-05] MEDS: Acetaminophen TAB* 325 MG PO PRN ×2 (16:34→21:49)
--- NOTE | 2017-12-05 16:52 | PN ---
Subjective Date of Service: 12/05/17 Interval History: Patient had OR for left ankle surgery today NO CP or dyspnea Medications Active Medications: Acetaminophen (Tylenol Tab*) 650 mg PO Q4H PRN PRN Reason: PAIN Last Admin: 12/05/17 16:34 Dose: 650 mg Albuterol (Ventolin Hfa Inhaler*) 2 puff INH Q4H PRN PRN Reason: SHORTNESS OF BREATH Atropine Sulfate (Atropine Syringe*) 1 mg IV ONCE PRN PRN Reason: HR <35 OR SYMPTOMATIC Last Admin: 12/01/17 21:50 Dose: 1 mg Benzonatate (Tessalon Cap*) 100 mg PO TID PRN PRN Reason: COUGH Bisacodyl (Dulcolax Supp*) 10 mg [place] DAILY PRN PRN Reason: CONSTIPATION Cyclobenzaprine HCl (Flexeril Tab*) 5 mg PO TID PRN PRN Reason: SPASMS - MUSCLE Last Admin: 12/05/17 16:33 Dose: 5 mg Dimenhydrinate (Dramamine Iv*) 25 mg IV PUSH ONCE PRN PRN Reason: NAUSEA/VOMITING Stop: 12/05/17 20:00 Docusate Sodium (Colace Cap*) 200 mg PO DAILY [facility] Last Admin: 12/05/17 07:55 Dose: Not Given Fentanyl Citrate (Fentanyl*) 50 mcg IV Q5M PRN PRN Reason: PAIN - MODERATE Stop: 12/05/17 20:00 Heparin Sodium (Porcine) (Heparin Vial(*)) 5,000 units SUBCUT Q8HR [facility] Last Admin: 12/05/17 16:35 Dose: 5,000 units Hydromorphone HCl (Dilaudid Injic*) 0.2 mg IV Q5M PRN PRN Reason: PAIN - SEVERE Stop: 12/05/17 20:00 Hydroxyzine HCl (Atarax Tab*) 25 mg PO TID PRN PRN Reason: ITCHING Lactated Ringer's (Lactated Ringers 1000 Ml Bag*) 1,000 mls @ 125 mls/hr IV PER RATE [facility] Last Admin: 12/05/17 09:00 Dose: 125 mls/hr Clindamycin HCl/Dextrose (Cleocin 600 Mg Ivpremix(*) Sdv) 600 mg in 50 mls @ 100 mls/hr IV Q8H [facility] Stop: 12/06/17 09:29 Lactulose (Lactulose*) 30 ml PO Q6H PRN PRN Reason: NOT SPECIFIED Metoprolol Succinate (Toprol Xl Tab*) 25 mg PO DAILY [facility] Last Admin: 12/05/17 08:22 Dose: 25 mg Naloxone HCl (Narcan*) 0.08 mg IV Q2M PRN PRN Reason: severe induced resp depression Stop: 12/05/17 20:00 Omeprazole (Prilosec Cap*) 20 mg PO DAILY [facility] PRN Reason: Protocol Last Admin: 12/05/17 07:56 Dose: Not Given Ondansetron HCl (Zofran Inj*) 4 mg IV ONCE PRN PRN Reason: NAUSEA/VOMITING Stop: 12/05/17 20:00 Oxycodone HCl (Roxycodone Tab*) 10 mg PO Q4H PRN PRN Reason: PAIN Last Admin: 12/04/17 23:22 Dose: 10 mg Polyethylene Glycol/Electrolytes (Miralax*) 17 gm PO DAILY PRN PRN Reason: CONSTIPATION Last Admin: 12/04/17 09:18 Dose: 17 gm Potassium Chloride (Klor Con Er Tab*) 10 meq PO DAILY [facility] Last Admin: 12/05/17 07:56 Dose: Not Given Pramipexole Dihydrochloride (Mirapex Tab*) 0.25 mg PO BEDTIME@2100 [facility] Last Admin: 12/04/17 23:20 Dose: 0.25 mg Senna (Senokot Tab*) 1 tab PO BID [facility] Last Admin: 12/05/17 07:56 Dose: Not Given Objective Vital Signs: Temp Pulse Resp BP Pulse Ox 97.2 F 73 16 133/72 97 12/05/17 16:29 12/05/17 16:29 12/05/17 16:33 12/05/17 16:29 12/05/17 16:29 Oxygen Devices in Use Now: None Appearance: Lying at 30 degrees, comfortable. Eyes: No Scleral Icterus, PERRLA Ears/Nose/Mouth/Throat: Clear Oropharnyx, Mucous Membranes Moist Neck: NL Appearance and Movements; NL JVP, Trachea Midline Respiratory: Symmetrical Chest Expansion and Respiratory Effort, Clear to Auscultation Cardiovascular: NL Sounds; No Murmurs; No JVD, RRR - incision L subclavian fossa no hematoma, bleeding or infection., - - pacemaker site c/d/i no swelling , drainage or hematoma Abdominal: NL Sounds; No Tenderness; No Distention Extremities: No Clubbing, Cyanosis Skin: No Rash or Ulcers, - - left ankle in brace Neurological: Alert and Oriented x 3 Lines/Tubes/Other Access: Clean, Dry and Intact Peripheral IV Laboratory Results: 12/03/17 05:38 12/03/17 05:38 INR (Anticoag Therapy) 1.04 (0.77-1.02) H 12/02/17 05:56 Total Bilirubin 0.60 mg/dL (0.2-1.0) 12/01/17 12:30 AST 16 U/L (13-39) 12/01/17 12:30 ALT 19 U/L (7-52) 12/01/17 12:30 Alkaline Phosphatase 77 U/L (34-104) 12/01/17 12:30 B-Natriuretic Peptide 13 pg/mL (-100) 12/01/17 12:30 Total Protein 7.0 g/dL (6.4-8.9) 12/01/17 12:30 Albumin 3.9 g/dL (3.2-5.2) 12/01/17 12:30 Globulin 3.1 g/dL (2-4) 12/01/17 12:30 Albumin/Globulin Ratio 1.3 (1-3) 12/01/17 12:30 TSH 0.97 mcIU/mL (0.34-5.60) 12/01/17 12:30 12/01/17 12:30 Troponin I 0.01 Diagnostic Imaging: ECHO 11/30/17 EF 65%, hyperdynamic. CXR 12/03/17: No pneumthorax, good lead placement. Assessment/Plan Radha Madrid is a 72 year old woman with recurrent syncope with injury and without prodrome. She has documented severe sinus bradycardia and 7 second symptomatic pause while in pain/vagal response in the ER now s/p dual chamber pacemaker. Also had surgery for left lower leg today suffered as a result of syncope. Needs wound check and jessie removed next week
[2017-12-05] MEDS ORDERED: Clindamycin 600 MG IVPREMIX(* 600 MG/50 ML SDV IV SCH (17:00)
--- NOTE | 2017-12-05 17:04 | PN ---
Subjective Date of Service: 12/05/17 Interval History: Patient examined postoperatively. Pain 5/10 in foot incision, no pain at pacemaker incision. No CP, SOB, N/V, abdominal pain, F/C, palpitations, Dizziness, changes in vision, or other pain. Patient amenable to discharge to [facility] if available. No other complaints. Family History: Unchanged from Admission Social History: Unchanged from Admission Past Medical History: Unchanged from Admission Objective Active Medications: Acetaminophen (Tylenol Tab*) 650 mg PO Q4H PRN PRN Reason: PAIN Last Admin: 12/05/17 16:34 Dose: 650 mg Albuterol (Ventolin Hfa Inhaler*) 2 puff INH Q4H PRN PRN Reason: SHORTNESS OF BREATH Atropine Sulfate (Atropine Syringe*) 1 mg IV ONCE PRN PRN Reason: HR <35 OR SYMPTOMATIC Last Admin: 12/01/17 21:50 Dose: 1 mg Benzonatate (Tessalon Cap*) 100 mg PO TID PRN PRN Reason: COUGH Bisacodyl (Dulcolax Supp*) 10 mg [place] DAILY PRN PRN Reason: CONSTIPATION Cyclobenzaprine HCl (Flexeril Tab*) 5 mg PO TID PRN PRN Reason: SPASMS - MUSCLE Last Admin: 12/05/17 16:33 Dose: 5 mg Dimenhydrinate (Dramamine Iv*) 25 mg IV PUSH ONCE PRN PRN Reason: NAUSEA/VOMITING Stop: 12/05/17 20:00 Docusate Sodium (Colace Cap*) 200 mg PO DAILY [facility] Last Admin: 12/05/17 07:55 Dose: Not Given Fentanyl Citrate (Fentanyl*) 50 mcg IV Q5M PRN PRN Reason: PAIN - MODERATE Stop: 12/05/17 20:00 Heparin Sodium (Porcine) (Heparin Vial(*)) 5,000 units SUBCUT Q8HR ON [facility] Last Admin: 12/05/17 16:35 Dose: 5,000 units Hydromorphone HCl (Dilaudid Injic*) 0.2 mg IV Q5M PRN PRN Reason: PAIN - SEVERE Stop: 12/05/17 20:00 Hydroxyzine HCl (Atarax Tab*) 25 mg PO TID PRN PRN Reason: ITCHING Lactated Ringer's (Lactated Ringers 1000 Ml Bag*) 1,000 mls @ 125 mls/hr IV PER RATE [facility] Last Admin: 12/05/17 09:00 Dose: 125 mls/hr Clindamycin HCl/Dextrose (Cleocin 600 Mg Ivpremix(*) Sdv) 600 mg in 50 mls @ 100 mls/hr IV Q8H [facility] Stop: 12/06/17 17:29 Lactulose (Lactulose*) 30 ml PO Q6H PRN PRN Reason: NOT SPECIFIED Metoprolol Succinate (Toprol Xl Tab*) 25 mg PO DAILY [facility] Last Admin: 12/05/17 08:22 Dose: 25 mg Naloxone HCl (Narcan*) 0.08 mg IV Q2M PRN PRN Reason: severe induced resp depression Stop: 12/05/17 20:00 Omeprazole (Prilosec Cap*) 20 mg PO DAILY [facility] PRN Reason: Protocol Last Admin: 12/05/17 07:56 Dose: Not Given Ondansetron HCl (Zofran Inj*) 4 mg IV ONCE PRN PRN Reason: NAUSEA/VOMITING Stop: 12/05/17 20:00 Oxycodone HCl (Roxycodone Tab*) 10 mg PO Q4H PRN PRN Reason: PAIN Last Admin: 12/04/17 23:22 Dose: 10 mg Polyethylene Glycol/Electrolytes (Miralax*) 17 gm PO DAILY PRN PRN Reason: CONSTIPATION Last Admin: 12/04/17 09:18 Dose: 17 gm Potassium Chloride (Klor Con Er Tab*) 10 meq PO DAILY [facility] Last Admin: 12/05/17 07:56 Dose: Not Given Pramipexole Dihydrochloride (Mirapex Tab*) 0.25 mg PO BEDTIME@2100 [facility] Last Admin: 12/04/17 23:20 Dose: 0.25 mg Senna (Senokot Tab*) 1 tab PO BID [facility] Last Admin: 12/05/17 07:56 Dose: Not Given Vital Signs - 8 hr 12/05/17 12/05/17 12/05/17 10:00 11:10 15:25 Temperature 98.0 F 98.6 F Pulse Rate 75 80 Respiratory 16 18 Rate Blood Pressure 129/63 119/79 (mmHg) O2 Sat by Pulse 98 98 98 Oximetry 12/05/17 12/05/17 12/05/17 15:30 15:35 15:40 Temperature Pulse Rate 79 78 74 Respiratory 18 17 16 Rate Blood Pressure 122/72 125/88 (mmHg) O2 Sat by Pulse 96 97 97 Oximetry 12/05/17 12/05/17 12/05/17 15:45 16:00 16:29 Temperature 97.2 F Pulse Rate 80 74 73 Respiratory 18 20 16 Rate Blood Pressure 131/77 127/72 133/72 (mmHg) O2 Sat by Pulse 98 98 97 Oximetry 12/05/17 16:33 Temperature Pulse Rate Respiratory 16 Rate Blood Pressure (mmHg) O2 Sat by Pulse Oximetry Oxygen Devices in Use Now: None Appearance: Patient is a 72yo female who appears younger than stated age and is sitting in the bed in NAD. Eyes: No Scleral Icterus, PERRLA Ears/Nose/Mouth/Throat: NL Teeth, Lips, Gums, Clear Oropharnyx, Mucous Membranes Moist Neck: NL Appearance and Movements; NL JVP, Trachea Midline Respiratory: Symmetrical Chest Expansion and Respiratory Effort, Clear to Auscultation Cardiovascular: NL Sounds; No Murmurs; No JVD, RRR, No Edema Abdominal: No Hepatosplenomegaly, - - Hypoactive bowel sounds. Lymphatic: No Cervical Adenopathy Extremities: No Edema Skin: No Rash or Ulcers, No Nodules or Sclerosis Neurological: Alert and Oriented x 3, NL Sensation, NL Muscle Strength and Tone , - - CN II-XII intact. Result Diagrams: 12/03/17 05:38 12/03/17 05:38 Additional Lab and Data: Lab Results Microbiology and Other Data: Microbiology 12/01/17 18:20 Nasal Screen MRSA (PCR)(YAJAIRA) - Final Nasal Mrsa Not Detected Assess/Plan/Problems-Billing Ms Madrid is a 72 yo F who has a h/o HTN, HLD and past DVT/PE who presented to the ER after having a syncopal episode at home where she sustained a L TRImalleolar ankle fracture with stay notable for urinary retention, prolonged pauses of >6sec s/p PPM 12/02 - Patient Problems (1) Trimalleolar fracture of ankle, closed Current Visit: Yes Status: Acute Code(s): S82.853A - DISPLACED TRIMALLEOLAR FRACTURE OF UNSP LOWER LEG, INIT SNOMED Code(s): 7065488 Comment: The ankle was set by Dr. Ann in the ER. ORIF today without complication. Continue pain control and bowel regimen. Monitor H/H. (2) Syncope Current Visit: Yes Status: Acute Code(s): R55 - SYNCOPE AND COLLAPSE SNOMED Code(s): 081577178 Comment: Appreciate cardiology input. Secondary to prolonged sinus pauses s/p PPM 12/02 Monitor on Tele. Avoid vagal stimuli to avoid recurrences. (3) Constipation Current Visit: Yes Status: Acute Code(s): K59.00 - CONSTIPATION, UNSPECIFIED SNOMED Code(s): 54498128 Comment: Colace, Senna scheduled. Miralax, Lactulose PRN Reports this has been a problem in the past Advised to be aggressive with post-operative bowel regimen to avoid constipation. (4) HTN (hypertension) Current Visit: Yes Status: Acute Code(s): I10 - ESSENTIAL (PRIMARY) HYPERTENSION SNOMED Code(s): 94282295 Comment: BP is under good control on metoprolol. Resume lisinopril when indicated. (5) History of deep venous thrombosis or pulmonary embolus Current Visit: Yes Status: Acute Code(s): NFW1949 - SNOMED Code(s): 611878061 Comment: Heparin SubQ. (6) Hyponatremia Current Visit: Yes Status: Acute Code(s): E87.1 - HYPO-OSMOLALITY AND HYPONATREMIA SNOMED Code(s): 33294829 Comment: Holding HCTZ. Will change to different antihypertensive. (7) Urinary retention Current Visit: Yes Status: Acute Code(s): R33.9 - RETENTION OF URINE, UNSPECIFIED SNOMED Code(s): 769401771 Comment: Reza in place Trial void after OR tomorrow. (8) DVT prophylaxis Current Visit: Yes Status: Acute Code(s): XIU0780 - SNOMED Code(s): 860466167 Comment: [facility] (9) Full code status Current Visit: Yes Status: Acute Code(s): Z78.9 - OTHER SPECIFIED HEALTH STATUS SNOMED Code(s): 843343283
--- NOTE | 2017-12-05 19:31 | RAD ---
INDICATION: Traumatic left ankle fractures COMPARISON: December 01, 2017 FINDINGS: 2.1 seconds of fluoroscopy were provided for the orthopedics department. Fluoroscopic spot imaging of the left ankle were obtained for operative control. CPT II Codes: 6045F (fluoro time doc)
[2017-12-05] MEDS: Pramipexole TAB* 0.5 MG PO SCH (21:47)
[2017-12-05] MEDS: oxyCODONE TAB* 5 MG TAB PO PRN (21:48)
[2017-12-06] MEDS: Clindamycin 600 MG IVPREMIX(* 600 MG/50 ML SDV IV SCH ×3 (01:00→16:25)
[2017-12-06 05:24] LABS: ABS Basophils 0 10^3/ul (0-0.2); ABS Eosinophils 0 10^3/ul (0-0.6); ABS Lymphocytes 0.7 10^3/ul (1.0-4.8); ABS Monocytes 0.5 10^3/ul (0-0.8); ABS Neutrophils 7.3 10^3/ul (1.5-7.7); ABS Nucleated RBC 0 10^3/ul; Eosinophil % 0 % (0-6); Hematocrit 30 % (35-47); Hemoglobin 10.6 g/dl (12.0-16.0); Lymphocyte % 7.8 % (25-47); Mean Corpuscular HGB Conc 35 g/dl (31-36); Mean Corpuscular Hemoglobin 32 pg (27-31); Mean Corpuscular Volume 92 fL (80-97); Mean Platelet Volume 7.7 um3 (7.4-10.4); Nucleated Red Blood Cells % 0.1; Platelet Count 233 10^3/ul (150-450); Red Blood Count 3.29 10^6/ul (4.0-5.4); Red Cell Distribution Width 13 % (10.5-15); White Blood Count 8.5 10^3/ul (3.5-10.8)
[2017-12-06 05:42] LABS: EGFR Non-African American 140.2 (>60)
[2017-12-06] MEDS: Heparin VIAL(*) 5000 UNITS/ML VIAL (FIVE THOUSAND) SUBCUT SCH ×3 (06:09→21:17)
[2017-12-06] MEDS: Potassium Chlor TAB* 10 MEQ TAB.ER PO SCH (09:25)
[2017-12-06] MEDS: Senna TAB PO SCH ×2 (09:25→21:17)
[2017-12-06] MEDS: Docusate CAP* 100 MG PO SCH (09:25)
[2017-12-06] MEDS: Metoprolol Succinate XL TAB* 25 MG PO SCH (09:25)
[2017-12-06] MEDS: Omeprazole CAP* 20 MG PO SCH (09:25)
[2017-12-06] MEDS: Acetaminophen TAB* 325 MG PO PRN (09:34)
[2017-12-06] MEDS: Cyclobenzaprine TAB* 10 MG PO PRN (09:35)
--- NOTE | 2017-12-06 15:01 | PN ---
Subjective Date of Service: 12/06/17 Interval History: Patient got very confused overnight. Not clear on details in AM but doesn't feel like she knew where she was and remembered being very disoriented. Patient alert and oriented this AM. Patient denies F/C, N/V, abdominal pain, diarrhea, Patient does not feel constipated. Denies CP, SOB. Pain tolerable in ankle. Family History: Unchanged from Admission Social History: Unchanged from Admission Past Medical History: Unchanged from Admission Objective Active Medications: Acetaminophen (Tylenol Tab*) 650 mg PO Q4H PRN PRN Reason: PAIN Last Admin: 12/06/17 09:34 Dose: 650 mg Albuterol (Ventolin Hfa Inhaler*) 2 puff INH Q4H PRN PRN Reason: SHORTNESS OF BREATH Atropine Sulfate (Atropine Syringe*) 1 mg IV ONCE PRN PRN Reason: HR <35 OR SYMPTOMATIC Last Admin: 12/01/17 21:50 Dose: 1 mg Benzonatate (Tessalon Cap*) 100 mg PO TID PRN PRN Reason: COUGH Bisacodyl (Dulcolax Supp*) 10 mg [place] DAILY PRN PRN Reason: CONSTIPATION Cyclobenzaprine HCl (Flexeril Tab*) 5 mg PO TID PRN PRN Reason: SPASMS - MUSCLE Last Admin: 12/06/17 09:35 Dose: 5 mg Docusate Sodium (Colace Cap*) 200 mg PO DAILY [facility] Last Admin: 12/06/17 09:25 Dose: 200 mg Heparin Sodium (Porcine) (Heparin Vial(*)) 5,000 units SUBCUT Q8HR [facility] Last Admin: 12/06/17 14:49 Dose: 5,000 units Hydroxyzine HCl (Atarax Tab*) 25 mg PO TID PRN PRN Reason: ITCHING Clindamycin HCl/Dextrose (Cleocin 600 Mg Ivpremix(*) Sdv) 600 mg in 50 mls @ 100 mls/hr IV Q8H [facility] Stop: 12/06/17 17:29 Last Admin: 12/06/17 09:25 Dose: 100 mls/hr Lactated Ringer's (Lactated Ringers 1000 Ml Bag*) 1,000 mls @ 75 mls/hr IV PER RATE [facility] Last Admin: 12/06/17 02:57 Dose: 75 mls/hr Lactulose (Lactulose*) 30 ml PO Q6H PRN PRN Reason: NOT SPECIFIED Metoprolol Succinate (Toprol Xl Tab*) 25 mg PO DAILY [facility] Last Admin: 12/06/17 09:25 Dose: 25 mg Omeprazole (Prilosec Cap*) 20 mg PO DAILY [facility] PRN Reason: Protocol Last Admin: 12/06/17 09:25 Dose: 20 mg Oxycodone HCl (Roxycodone Tab*) 10 mg PO Q4H PRN PRN Reason: PAIN Last Admin: 12/05/17 21:48 Dose: 10 mg Polyethylene Glycol/Electrolytes (Miralax*) 17 gm PO DAILY PRN PRN Reason: CONSTIPATION Last Admin: 12/04/17 09:18 Dose: 17 gm Potassium Chloride (Klor Con Er Tab*) 10 meq PO DAILY [facility] Last Admin: 12/06/17 09:25 Dose: 10 meq Pramipexole Dihydrochloride (Mirapex Tab*) 0.25 mg PO BEDTIME@2100 [facility] Last Admin: 12/05/17 21:47 Dose: 0.25 mg Senna (Senokot Tab*) 1 tab PO BID [facility] Last Admin: 12/06/17 09:25 Dose: 1 tab Vital Signs - 8 hr 12/06/17 12/06/17 12/06/17 07:43 08:00 09:35 Temperature 97.7 F Pulse Rate 84 Respiratory 16 16 16 Rate Blood Pressure 126/72 (mmHg) O2 Sat by Pulse 98 98 Oximetry 12/06/17 12/06/17 12/06/17 11:03 11:35 12:34 Temperature 97.9 F Pulse Rate 90 Respiratory 15 16 Rate Blood Pressure 86/60 123/58 (mmHg) O2 Sat by Pulse 99 Oximetry Oxygen Devices in Use Now: None Appearance: Patient is a 72yo female who appears stated age and is sitting in the bed in [facility]. Eyes: No Scleral Icterus, PERRLA Ears/Nose/Mouth/Throat: NL Teeth, Lips, Gums, Clear Oropharnyx, Mucous Membranes Moist Neck: NL Appearance and Movements; NL JVP, Trachea Midline Respiratory: Symmetrical Chest Expansion and Respiratory Effort, Clear to Auscultation Cardiovascular: NL Sounds; No Murmurs; No JVD, RRR, No Edema, - - Capillary refill positive distally in surgical extremity. Abdominal: NL Sounds; No Tenderness; No Distention, No Hepatosplenomegaly Lymphatic: No Cervical Adenopathy Extremities: No Edema, No Clubbing, Cyanosis Skin: No Nodules or Sclerosis, - - Left ankle covered in bulky dressing. Neurological: Alert and Oriented x 3, NL Sensation, NL Muscle Strength and Tone , - - CN II-XII intact. Result Diagrams: 12/06/17 05:04 12/06/17 05:03 Additional Lab and Data: Lab Results Microbiology and Other Data: Microbiology 12/01/17 18:20 Nasal Screen MRSA (PCR)(YAJAIRA) - Final Nasal Mrsa Not Detected Assess/Plan/Problems-Billing Ms Madrid is a 72 yo F who has a h/o HTN, HLD and past DVT/PE who presented to the ER after having a syncopal episode at home where she sustained a L TRImalleolar ankle fracture with stay notable for urinary retention, prolonged pauses of >6sec s/p PPM 12/02 and then ORIF on 12/05. - Patient Problems (1) Trimalleolar fracture of ankle, closed Current Visit: Yes Status: Acute Code(s): S82.853A - DISPLACED TRIMALLEOLAR FRACTURE OF UNSP LOWER LEG, INIT SNOMED Code(s): 1319586 Comment: The ankle was set by Dr. Ann in the ER. ORIF on 12/05 without complication. Continue pain control and bowel regimen. Monitor H/H. (2) Syncope Current Visit: Yes Status: Acute Code(s): R55 - SYNCOPE AND COLLAPSE SNOMED Code(s): 457955095 Comment: Appreciate cardiology input. Secondary to prolonged sinus pauses s/p PPM 30 Monitor on Tele. Avoid vagal stimuli to avoid recurrences. (3) Constipation Current Visit: Yes Status: Acute Code(s): K59.00 - CONSTIPATION, UNSPECIFIED SNOMED Code(s): 42559007 Comment: Colace, Senna scheduled. Miralax, Lactulose PRN Reports this has been a problem in the past Advised to be aggressive with post-operative bowel regimen to avoid constipation. (4) HTN (hypertension) Current Visit: Yes Status: Acute Code(s): I10 - ESSENTIAL (PRIMARY) HYPERTENSION SNOMED Code(s): 48449703 Comment: BP is under good control on metoprolol. Resume lisinopril when indicated. One episode of hypotension in VS, asymptomatic without a pause. (5) History of deep venous thrombosis or pulmonary embolus Current Visit: Yes Status: Acute Code(s): ZPG3403 - SNOMED Code(s): 865566087 Comment: Heparin SubQ. (6) Hyponatremia Current Visit: Yes Status: Acute Code(s): E87.1 - HYPO-OSMOLALITY AND HYPONATREMIA SNOMED Code(s): 39413532 Comment: Holding HCTZ. Changed to Lisinopril. (7) Urinary retention Current Visit: Yes Status: Acute Code(s): R33.9 - RETENTION OF URINE, UNSPECIFIED SNOMED Code(s): 191097810 Comment: Remove alexander. Monitor for urinary retention. Consider flomax if continued retention. (8) DVT prophylaxis Current Visit: Yes Status: Acute Code(s): XYY8535 - SNOMED Code(s): 314383454 Comment: Heparin SubQ. (9) Full code status Current Visit: Yes Status: Acute Code(s): Z78.9 - OTHER SPECIFIED HEALTH STATUS SNOMED Code(s): 101143104 Status and Disposition: Inpatient. Discharge to [facility] when available.
--- NOTE | 2017-12-06 15:27 | OP ---
DATE OF OPERATION: 12/05/17 - ROOM #434 DATE OF : 43 SURGEON: Chaparro Bearden MD [employer]STENER DRIVER: MEREDITH Montano PRE-OP DIAGNOSIS: Left trimalleolar ankle fracture, unstable, closed. POST-OP DIAGNOSIS: Left trimalleolar ankle fracture, unstable, closed. OPERATIVE PROCEDURE: Open reduction and internal fixation, left ankle fracture. DESCRIPTION OF PROCEDURE: The patient was taken to the operating room where a thigh tourniquet was inflated. We made a longitudinal incision over the fibula. There was a rather long spiral fracture. So, a longer incision was made to reduce the spiral fracture anatomically and pinned it longitudinally with a 0.062 C wire. We then fashioned a 9-hole one-third tibial plate to fit the posterolateral aspect of the fibula. This was fixed with [id number] cortical screws. We then removed the guidepin, closed with 2-0 Vicryl sutures and jessie for the skin. We then made a 4 cm longitudinal incision over the medial malleolus. The medial malleolar fragment was well reduced then with a point reduction clamp and then pinned with paired 4-0 cannulated screws. X-ray intraoperatively then showed on the AP and lateral view all three malleoli well reduced. We irrigated the medial malleolar incisions well with saline and 2-0 Vicryl suture for the subcu and jessie for the skin and a compression dressing plaster splint was applied. [id number] #: [id number] MTDD
--- NOTE | 2017-12-06 16:43 | PN ---
Progress Note - Progress Note Date of Service: 12/06/17 SOAP: Subjective: []Patient seen at bedside. She feels well with tolerable pain of LLE. She denies CP, SOB, dizziness or numbness of LLE. Objective: [] Vital Signs Temp 98.5 F 12/06/17 15:21 Pulse 82 12/06/17 15:21 Resp 16 12/06/17 15:21 BP 111/52 12/06/17 15:21 Pulse Ox 96 12/06/17 15:21 Intake & Output 12/05/17 12/06/17 12/06/17 18:59 06:59 18:59 Intake Total 1710 0 900 Output Total 150 1275 1350 Balance 1560 -1275 -450 Intake: IV Fluids 1500 LR 1500 Oral 210 0 900 Output: Urine 600 Reza 515 726 2317 Other: # Bowel Movements 0 Laboratory Last Values WBC 8.5 10^3/ul (3.5-10.8) 12/06/17 05:04 RBC 3.29 10^6/ul (4.0-5.4) L 12/06/17 05:04 Hgb 10.6 g/dl (12.0-16.0) L 12/06/17 05:04 Hct 30 % (35-47) L 12/06/17 05:04 MCV 92 fL (80-97) 12/06/17 05:04 MCH 32 pg (27-31) H 12/06/17 05:04 MCHC 35 g/dl (31-36) 12/06/17 05:04 RDW 13 % (10.5-15) 12/06/17 05:04 Plt Count 233 10^3/ul (150-450) 12/06/17 05:04 MPV 7.7 um3 (7.4-10.4) 12/06/17 05:04 Neut % (Auto) 85.7 % (38-83) H 12/06/17 05:04 Lymph % (Auto) 7.8 % (25-47) L 12/06/17 05:04 [place] % (Auto) 6.4 % (0-7) 12/06/17 05:04 Eos % (Auto) 0 % (0-6) 12/06/17 05:04 Baso % (Auto) 0.1 % (0-2) 12/06/17 05:04 Absolute Neuts (auto) 7.3 10^3/ul (1.5-7.7) 12/06/17 05:04 Absolute Lymphs (auto) 0.7 10^3/ul (1.0-4.8) L 12/06/17 05:04 Absolute Monos (auto) 0.5 10^3/ul (0-0.8) 12/06/17 05:04 Absolute Eos (auto) 0 10^3/ul (0-0.6) 12/06/17 05:04 Absolute Basos (auto) 0 10^3/ul (0-0.2) 12/06/17 05:04 Absolute Nucleated RBC 0 10^3/ul 12/06/17 05:04 Nucleated RBC % 0.1 12/06/17 05:04 INR (Anticoag Therapy) 1.04 (0.77-1.02) H 12/02/17 05:56 Sodium 130 mmol/L (139-145) L 12/06/17 05:03 Potassium 4.4 mmol/L (3.5-5.0) 12/06/17 05:03 Chloride 99 mmol/L (101-111) L 12/06/17 05:03 Carbon Dioxide 25 mmol/L (22-32) 12/06/17 05:03 Anion Gap 6 mmol/L (2-11) 12/06/17 05:03 BUN 10 mg/dL (6-24) 12/06/17 05:03 Creatinine 0.44 mg/dL (0.51-0.95) L 12/06/17 05:03 Est GFR ( Amer) 180.3 (>60) 12/06/17 05:03 Est GFR (Non-Af Amer) 140.2 (>60) 12/06/17 05:03 BUN/Creatinine Ratio 22.7 (8-20) H 12/06/17 05:03 Glucose 120 mg/dL (70-100) H 12/06/17 05:03 Calcium 8.7 mg/dL (8.6-10.3) 12/06/17 05:03 Magnesium 2.0 mg/dL (1.9-2.7) 12/01/17 12:30 Total Bilirubin 0.60 mg/dL (0.2-1.0) 12/01/17 12:30 AST 16 U/L (13-39) 12/01/17 12:30 ALT 19 U/L (7-52) 12/01/17 12:30 Alkaline Phosphatase 77 U/L (34-104) 12/01/17 12:30 Troponin I 0.01 ng/mL (<0.04) 12/01/17 12:30 B-Natriuretic Peptide 13 pg/mL (-100) 12/01/17 12:30 Total Protein 7.0 g/dL (6.4-8.9) 12/01/17 12: Albumin 3.9 g/dL (3.2-5.2) 12/01/17 12: Globulin 3.1 g/dL (2-4) 12/01/17 12: Albumin/Globulin Ratio 1.3 (1-3) 12/01/17 12: TSH 0.97 mcIU/mL (0.34-5.60) 12/01/17 12:30 Urine Color Yellow 12/02/17 00:09 Urine Appearance Cloudy 12/02/17 00:09 Urine pH 6.0 (5-9) 12/02/17 00:09 Ur Specific [place] 1.006 (1.010-1.030) L 12/02/17 00:09 Urine Protein Negative (Negative) 12/02/17 00:09 Urine Ketones Trace (Negative) A 12/02/17 00:09 Urine Blood Negative (Negative) 12/02/17 00:09 Urine Nitrate Negative (Negative) 12/02/17 00:09 Urine Bilirubin Negative (Negative) 12/02/17 00:09 Urine Urobilinogen Negative (Negative) 12/02/17 00:09 Ur Leukocyte Esterase 3+ (Negative) A 12/02/17 00:09 Urine WBC (Auto) 3+(>20/hpf) (Absent) A 12/02/17 00:09 Urine RBC (Auto) 1+(3-5/hpf) (Absent) A 12/02/17 00:09 Ur Squamous Epith Cells Present (Absent) A 12/02/17 00:09 Ur Transition Epith Cell Present (Absent) A 12/02/17 00:09 Ur Renal Epithelial Cell Present (Absent) A 12/02/17 00:09 Urine Bacteria 1+ (Absent) A 12/02/17 00:09 Urine Glucose Negative (Negative) 12/02/17 00:09 General: Well appearing, NAD. Calm and comfortable LLE: Splint CDI. Exposed toes warm, capillary refill less than two seconds, able to wiggle and sensation intact to light touch. Proximal to splint without erythema or tenderness, thigh is soft. RLE: Calf supple and nontender without erythema or edema Assessment: []POD 1 SP left ankle ORIF Plan: []NWB LLE Heparin DVT prophylaxis Will continue to follow
[2017-12-06] MEDS: Pramipexole TAB* 0.5 MG PO SCH (21:17)
[2017-12-07 04:54] LABS: ABS Basophils 0 10^3/ul (0-0.2); ABS Eosinophils 0.1 10^3/ul (0-0.6); ABS Monocytes 0.8 10^3/ul (0-0.8); ABS Nucleated RBC 0 10^3/ul; Eosinophil % 1.6 % (0-6); Hematocrit 30 % (35-47); Hemoglobin 10.2 g/dl (12.0-16.0); Lymphocyte % 29.2 % (25-47); Mean Corpuscular HGB Conc 35 g/dl (31-36); Mean Corpuscular Hemoglobin 32 pg (27-31); Mean Corpuscular Volume 92 fL (80-97); Mean Platelet Volume 7.5 um3 (7.4-10.4); Nucleated Red Blood Cells % 0; Platelet Count 243 10^3/ul (150-450); Red Blood Count 3.21 10^6/ul (4.0-5.4); Red Cell Distribution Width 13 % (10.5-15)
[2017-12-07 05:08] LABS: EGFR Non-African American 115.6 (>60)
[2017-12-07] MEDS: Heparin VIAL(*) 5000 UNITS/ML VIAL (FIVE THOUSAND) SUBCUT SCH ×3 (05:27→22:17)
[2017-12-07] MEDS: Acetaminophen TAB* 325 MG PO PRN ×3 (05:31→22:22)
[2017-12-07] MEDS: Docusate CAP* 100 MG PO SCH (10:01)
[2017-12-07] MEDS: Potassium Chlor TAB* 10 MEQ TAB.ER PO SCH (10:02)
[2017-12-07] MEDS: Senna TAB PO SCH ×2 (10:02→22:17)
[2017-12-07] MEDS: Omeprazole CAP* 20 MG PO SCH (10:02)
[2017-12-07] MEDS: Metoprolol Succinate XL TAB* 25 MG PO SCH (10:03)
--- NOTE | 2017-12-07 13:13 | PN ---
Progress Note - Progress Note Date of Service: 12/07/17 SOAP: Subjective: []Patient seen at bedside. SHe is feeling well with no complaint of pain of the LLE. She denies fever, chills, CP, SOB. Objective: [] Vital Signs Temp 99.3 F 12/07/17 08:18 Pulse 85 12/07/17 08:18 Resp 18 12/07/17 08:18 BP 136/68 12/07/17 08:18 Pulse Ox 96 12/07/17 08:18 Intake & Output 12/06/17 12/07/17 12/07/17 18:59 06:59 18:59 Intake Total 900 2929 Output Total 1350 1600 Balance -450 1329 Intake: IV Fluids 2279 LR 2279 Oral 900 650 Output: Urine 1600 Reza 1350 Other: # Bowel Movements 0 # Voids 1 Laboratory Last Values WBC 7.0 10^3/ul (3.5-10.8) 12/07/17 04:41 RBC 3.21 10^6/ul (4.0-5.4) L 12/07/17 04:41 Hgb 10.2 g/dl (12.0-16.0) L 12/07/17 04:41 Hct 30 % (35-47) L 12/07/17 04:41 MCV 92 fL (80-97) 12/07/17 04:41 MCH 32 pg (27-31) H 12/07/17 04:41 MCHC 35 g/dl (31-36) 12/07/17 04:41 RDW 13 % (10.5-15) 12/07/17 04:41 Plt Count 243 10^3/ul (150-450) 12/07/17 04:41 MPV 7.5 um3 (7.4-10.4) 12/07/17 04:41 Neut % (Auto) 57.5 % (38-83) 12/07/17 04:41 Lymph % (Auto) 29.2 % (25-47) 12/07/17 04:41 [place] % (Auto) 11.1 % (0-7) H 12/07/17 04:41 Eos % (Auto) 1.6 % (0-6) 12/07/17 04:41 Baso % (Auto) 0.6 % (0-2) 12/07/17 04:41 Absolute Neuts (auto) 4.0 10^3/ul (1.5-7.7) 12/07/17 04:41 Absolute Lymphs (auto) 2.0 10^3/ul (1.0-4.8) 12/07/17 04:41 Absolute Monos (auto) 0.8 10^3/ul (0-0.8) 12/07/17 04:41 Absolute Eos (auto) 0.1 10^3/ul (0-0.6) 12/07/17 04:41 Absolute Basos (auto) 0 10^3/ul (0-0.2) 12/07/17 04:41 Absolute Nucleated RBC 0 10^3/ul 12/07/17 04:41 Nucleated RBC % 0 12/07/17 04:41 INR (Anticoag Therapy) 1.04 (0.77-1.02) H 12/02/17 05:56 Sodium 132 mmol/L (139-145) L 12/07/17 04:41 Potassium 4.3 mmol/L (3.5-5.0) 12/07/17 04:41 Chloride 100 mmol/L (101-111) L 12/07/17 04:41 Carbon Dioxide 26 mmol/L (22-32) 12/07/17 04:41 Anion Gap 6 mmol/L (2-11) 12/07/17 04:41 BUN 11 mg/dL (6-24) 12/07/17 04:41 Creatinine 0.52 mg/dL (0.51-0.95) 12/07/17 04:41 Est GFR ( Amer) 148.7 (>60) 12/07/17 04:41 Est GFR (Non-Af Amer) 115.6 (>60) 12/07/17 04:41 BUN/Creatinine Ratio 21.2 (8-20) H 12/07/17 04:41 Glucose 95 mg/dL (70-100) 12/07/17 04:41 Calcium 8.5 mg/dL (8.6-10.3) L 12/07/17 04:41 Magnesium 2.0 mg/dL (1.9-2.7) 12/01/17 12:30 Total Bilirubin 0.60 mg/dL (0.2-1.0) 12/01/17 12:30 AST 16 U/L (13-39) 12/01/17 12:30 ALT 19 U/L (7-52) 12/01/17 12:30 Alkaline Phosphatase 77 U/L (34-104) 12/01/17 12:30 Troponin I 0.01 ng/mL (<0.04) 12/01/17 12:30 B-Natriuretic Peptide 13 pg/mL (-100) 12/01/17 12:30 Total Protein 7.0 g/dL (6.4-8.9) 12/01/17 12:30 Albumin 3.9 g/dL (3.2-5.2) 12/01/17 12: Globulin 3.1 g/dL (2-4) 12/01/17 12: Albumin/Globulin Ratio 1.3 (1-3) 12/01/17 12: TSH 0.97 mcIU/mL (0.34-5.60) 12/01/17 12:30 Urine Color Yellow 12/02/17 00:09 Urine Appearance Cloudy 12/02/17 00:09 Urine pH 6.0 (5-9) 12/02/17 00:09 Ur Specific [place] 1.006 (1.010-1.030) L 12/02/17 00:09 Urine Protein Negative (Negative) 12/02/17 00:09 Urine Ketones Trace (Negative) A 12/02/17 00:09 Urine Blood Negative (Negative) 12/02/17 00:09 Urine Nitrate Negative (Negative) 12/02/17 00:09 Urine Bilirubin Negative (Negative) 12/02/17 00:09 Urine Urobilinogen Negative (Negative) 12/02/17 00:09 Ur Leukocyte Esterase 3+ (Negative) A 12/02/17 00:09 Urine WBC (Auto) 3+(>20/hpf) (Absent) A 12/02/17 00:09 Urine RBC (Auto) 1+(3-5/hpf) (Absent) A 12/02/17 00:09 Ur Squamous Epith Cells Present (Absent) A 12/02/17 00:09 Ur Transition Epith Cell Present (Absent) A 12/02/17 00:09 Ur Renal Epithelial Cell Present (Absent) A 12/02/17 00:09 Urine Bacteria 1+ (Absent) A 12/02/17 00:09 Urine Glucose Negative (Negative) 12/02/17 00:09 General: Well appearing, NAD. Calm and comfortable LLE: Splint CDI. Exposed toes warm, capillary refill less than two seconds, able to wiggle and sensation intact to light touch. Proximal to splint without erythema or tenderness, thigh is soft. RLE: Calf supple and nontender without erythema or edema Assessment: []POD 2 SP left ankle ORIF Plan: []NWB LLE Heparin DVT prophylaxis Will continue to follow while in house
--- NOTE | 2017-12-07 16:38 | PN ---
Subjective Date of Service: 12/07/17 Interval History: Patient has no complaints except for intermittent tingling in LE which is not constant or severe and not associated with numbness. Patient denies F/C, N/V, abdominal pain, diarrhea, dysuria, dizziness, palpitations, or other pain. Patient not reported to be delirious overnight and entirely oriented in AM. Family History: Unchanged from Admission Social History: Unchanged from Admission Past Medical History: Unchanged from Admission Objective Active Medications: Acetaminophen (Tylenol Tab*) 650 mg PO Q4H PRN PRN Reason: PAIN Last Admin: 12/07/17 10:03 Dose: 650 mg Albuterol (Ventolin Hfa Inhaler*) 2 puff INH Q4H PRN PRN Reason: SHORTNESS OF BREATH Atropine Sulfate (Atropine Syringe*) 1 mg IV ONCE PRN PRN Reason: HR <35 OR SYMPTOMATIC Last Admin: 12/01/17 21:50 Dose: 1 mg Benzonatate (Tessalon Cap*) 100 mg PO TID PRN PRN Reason: COUGH Bisacodyl (Dulcolax Supp*) 10 mg [place] DAILY PRN PRN Reason: CONSTIPATION Cyclobenzaprine HCl (Flexeril Tab*) 5 mg PO TID PRN PRN Reason: SPASMS - MUSCLE Last Admin: 12/06/17 09:35 Dose: 5 mg Docusate Sodium (Colace Cap*) 200 mg PO DAILY [facility] Last Admin: 12/07/17 10:01 Dose: 200 mg Heparin Sodium (Porcine) (Heparin Vial(*)) 5,000 units SUBCUT Q8HR [facility] Last Admin: 12/07/17 14:27 Dose: 5,000 units Hydroxyzine HCl (Atarax Tab*) 25 mg PO TID PRN PRN Reason: ITCHING Lactulose (Lactulose*) 30 ml PO Q6H PRN PRN Reason: NOT SPECIFIED Metoprolol Succinate (Toprol Xl Tab*) 25 mg PO DAILY [facility] Last Admin: 12/07/17 10:03 Dose: 25 mg Omeprazole (Prilosec Cap*) 20 mg PO DAILY [facility] PRN Reason: Protocol Last Admin: 12/07/17 10:02 Dose: 20 mg Oxycodone HCl (Roxycodone Tab*) 10 mg PO Q4H PRN PRN Reason: PAIN Last Admin: 12/05/17 21:48 Dose: 10 mg Polyethylene Glycol/Electrolytes (Miralax*) 17 gm PO DAILY PRN PRN Reason: CONSTIPATION Last Admin: 12/04/17 09:18 Dose: 17 gm Potassium Chloride (Klor Con Er Tab*) 10 meq PO DAILY [facility] Last Admin: 12/07/17 10:02 Dose: 10 meq Pramipexole Dihydrochloride (Mirapex Tab*) 0.25 mg PO BEDTIME@2100 [facility] Last Admin: 12/06/17 21:17 Dose: 0.25 mg Senna (Senokot Tab*) 1 tab PO BID [facility] Last Admin: 12/07/17 10:02 Dose: 1 tab Vital Signs - 8 hr 12/07/17 12/07/17 13:43 14:36 Temperature 98.5 F Pulse Rate 77 Respiratory 20 Rate Blood Pressure 122/63 (mmHg) O2 Sat by Pulse 98 Oximetry Oxygen Devices in Use Now: None Appearance: Patient is a 72yo female who appears stated age and is sitting in the bed in [facility]. Eyes: No Scleral Icterus, PERRLA Ears/Nose/Mouth/Throat: NL Teeth, Lips, Gums, Clear Oropharnyx, Mucous Membranes Moist Neck: NL Appearance and Movements; NL JVP, Trachea Midline Respiratory: Symmetrical Chest Expansion and Respiratory Effort, Clear to Auscultation Cardiovascular: NL Sounds; No Murmurs; No JVD, RRR, No Edema, - - Pacer incision covered in clean, dry mepilex. Abdominal: NL Sounds; No Tenderness; No Distention, No Hepatosplenomegaly Lymphatic: No Cervical Adenopathy Extremities: No Edema, No Clubbing, Cyanosis Skin: No Nodules or Sclerosis, - - Left foot covered in bulky dressing with good perfusion distally. Neurological: Alert and Oriented x 3, NL Sensation, NL Muscle Strength and Tone , - - CN II-XII intact. Good distal sensation. Result Diagrams: 12/07/17 04:41 12/07/17 04:41 Additional Lab and Data: Lab Results Microbiology and Other Data: Microbiology 12/01/17 18:20 Nasal Screen MRSA (PCR)(YAJAIRA) - Final Nasal Mrsa Not Detected Assess/Plan/Problems-Billing Ms Madrid is a 72 yo F who has a h/o HTN, HLD and past DVT/PE who presented to the ER after having a syncopal episode at home where she sustained a L TRImalleolar ankle fracture with stay notable for urinary retention, prolonged pauses of >6sec s/p PPM 12/02 and then ORIF on 12/05. Patient is medically stable to rehab on 12/07. - Patient Problems (1) Trimalleolar fracture of ankle, closed Current Visit: Yes Status: Acute Code(s): S82.853A - DISPLACED TRIMALLEOLAR FRACTURE OF UNSP LOWER LEG, INIT SNOMED Code(s): 3900022 Comment: The ankle was set by Dr. Ann in the ER. ORIF on 12/05 without complication. Continue pain control and bowel regimen. Monitor H/H, stable. (2) Syncope Current Visit: Yes Status: Acute Code(s): R55 - SYNCOPE AND COLLAPSE SNOMED Code(s): 312864966 Comment: Appreciate cardiology input. Secondary to prolonged sinus pauses s/p PPM 30 Monitor on Tele. Avoid vagal stimuli to avoid recurrences. (3) Constipation Current Visit: Yes Status: Acute Code(s): K59.00 - CONSTIPATION, UNSPECIFIED SNOMED Code(s): 20581148 Comment: Colace, Senna scheduled. Miralax, Lactulose PRN Reports this has been a problem in the past Advised to be aggressive with post-operative bowel regimen to avoid constipation. (4) HTN (hypertension) Current Visit: Yes Status: Acute Code(s): I10 - ESSENTIAL (PRIMARY) HYPERTENSION SNOMED Code(s): 51075434 Comment: BP slightly elevated on metoprolol. Resume lisinopril. One episode of hypotension in VS, asymptomatic without a pause. (5) Hyponatremia Current Visit: Yes Status: Acute Code(s): E87.1 - HYPO-OSMOLALITY AND HYPONATREMIA SNOMED Code(s): 46623025 Comment: Holding HCTZ. Changed to Lisinopril. at 132 and improving. (6) Urinary retention Current Visit: Yes Status: Acute Code(s): R33.9 - RETENTION OF URINE, UNSPECIFIED SNOMED Code(s): 001907131 Comment: No retention Consider flomax if continued retention. (7) History of deep venous thrombosis or pulmonary embolus Current Visit: Yes Status: Acute Code(s): YPC0596 - SNOMED Code(s): 703678071 Comment: Heparin SubQ. (8) DVT prophylaxis Current Visit: Yes Status: Acute Code(s): WAO1133 - SNOMED Code(s): 151224162 Comment: Heparin SubQ. (9) Full code status Current Visit: Yes Status: Acute Code(s): Z78.9 - OTHER SPECIFIED HEALTH STATUS SNOMED Code(s): 113524904 Status and Disposition: Inpatient. Discharge to [facility] when available.
[2017-12-07] MEDS: Pramipexole TAB* 0.5 MG PO SCH (22:17)
[2017-12-08] MEDS: Heparin VIAL(*) 5000 UNITS/ML VIAL (FIVE THOUSAND) SUBCUT SCH (05:32)
[2017-12-08 07:01] LABS: ABS Basophils 0 10^3/ul (0-0.2); ABS Eosinophils 0.2 10^3/ul (0-0.6); ABS Lymphocytes 1.6 10^3/ul (1.0-4.8); ABS Monocytes 0.7 10^3/ul (0-0.8); ABS Neutrophils 3.3 10^3/ul (1.5-7.7); ABS Nucleated RBC 0 10^3/ul; Eosinophil % 2.8 % (0-6); Hematocrit 31 % (35-47); Hemoglobin 10.7 g/dl (12.0-16.0); Lymphocyte % 27.4 % (25-47); Mean Corpuscular HGB Conc 34 g/dl (31-36); Mean Corpuscular Hemoglobin 32 pg (27-31); Mean Corpuscular Volume 92 fL (80-97); Mean Platelet Volume 7.7 um3 (7.4-10.4); Nucleated Red Blood Cells % 0; Platelet Count 259 10^3/ul (150-450); Red Blood Count 3.39 10^6/ul (4.0-5.4); Red Cell Distribution Width 14 % (10.5-15); White Blood Count 5.7 10^3/ul (3.5-10.8)
[2017-12-08 07:19] LABS: EGFR Non-African American 115.6 (>60)
[2017-12-08 08:13] VITALS: BP 117/61
[2017-12-08] MEDS: Senna TAB PO SCH (08:48)
[2017-12-08] MEDS: Potassium Chlor TAB* 10 MEQ TAB.ER PO SCH (08:48)
[2017-12-08] MEDS: Metoprolol Succinate XL TAB* 25 MG PO SCH (08:48)
[2017-12-08] MEDS: Omeprazole CAP* 20 MG PO SCH (08:48)
[2017-12-08] MEDS: Docusate CAP* 100 MG PO SCH (08:48)
[2017-12-08] MEDS ORDERED: Lisinopril TAB* 5 MG PO SCH (09:00)
--- NOTE | 2017-12-08 09:57 | PN ---
Subjective Date of Service: 12/08/17 Interval History: Patient seen and examined at bedside. Denies fever, chills, shortness of breath , chest discomfort, N/V/D, numbness or tingling. Pt states that her pain is controlled. She reports that her splint is "rubbing her skin all over her foot". Tele: Sinus rhythm, rate 70-80's. Family History: Unchanged from Admission Social History: Unchanged from Admission Past Medical History: Unchanged from Admission Objective Active Medications: Acetaminophen (Tylenol Tab*) 650 mg PO Q4H PRN Reason: PAIN Albuterol (Ventolin Hfa Inhaler*) 2 puff INH Q4H PRN Reason: SHORTNESS OF BREATH Atropine Sulfate (Atropine Syringe*) 1 mg IV ONCE PRN Reason: HR <35 OR SYMPTOMATIC Benzonatate (Tessalon Cap*) 100 mg PO TID PRN Reason: COUGH Bisacodyl (Dulcolax Supp*) 10 mg [place] DAILY PRN Reason: CONSTIPATION Cyclobenzaprine HCl (Flexeril Tab*) 5 mg PO TID PRN Reason: SPASMS - MUSCLE Docusate Sodium (Colace Cap*) 200 mg PO DAILY [facility] Heparin Sodium (Porcine) (Heparin Vial(*)) 5,000 units SUBCUT Q8HR [facility] Hydroxyzine HCl (Atarax Tab*) 25 mg PO TID PRN Reason: ITCHING Lactulose (Lactulose*) 30 ml PO Q6H PRN Reason: NOT SPECIFIED Lisinopril (Prinivil Tab*) 5 mg PO DAILY [facility] Metoprolol Succinate (Toprol Xl Tab*) 25 mg PO DAILY [facility] Omeprazole (Prilosec Cap*) 20 mg PO DAILY [facility] Oxycodone HCl (Roxycodone Tab*) 10 mg PO Q4H PRN Reason: PAIN Polyethylene Glycol/Electrolytes (Miralax*) 17 gm PO DAILY PRN Reason: CONSTIPATION Potassium Chloride (Klor Con Er Tab*) 10 meq PO DAILY [facility] Pramipexole Dihydrochloride (Mirapex Tab*) 0.25 mg PO BEDTIME@2100 [facility] Senna (Senokot Tab*) 1 tab PO BID [facility] Vital Signs - 8 hr 12/08/17 12/08/17 12/08/17 03:26 07:28 08:00 Temperature 98.4 F 98.3 F Pulse Rate 81 76 Respiratory 16 18 18 Rate Blood Pressure 136/74 117/61 (mmHg) O2 Sat by Pulse 96 97 Oximetry 12/08/17 08:44 Temperature 98.3 F Pulse Rate 76 Respiratory 18 Rate Blood Pressure 117/61 (mmHg) O2 Sat by Pulse 97 Oximetry Oxygen Devices in Use Now: Nasal Cannula Appearance: NAD, laying in bed Respiratory: Symmetrical Chest Expansion and Respiratory Effort, Clear to Auscultation Cardiovascular: NL Sounds; No Murmurs; No JVD, RRR Abdominal: NL Sounds; No Tenderness; No Distention Extremities: No Edema Skin: No Rash or Ulcers, - - Splint to left LE clean, dry and intact. Dressing to left upper chest clean, dry and intact Neurological: Alert and Oriented x 3, NL Muscle Strength and Tone Nutrition: Taking PO's Result Diagrams: 12/08/17 05:49 12/08/17 05:49 Additional Lab and Data: Microbiology and Other Data: Microbiology 12/01/17 18:20 Nasal Screen MRSA (PCR)(YAJAIRA) - Final Nasal Mrsa Not Detected Assess/Plan/Problems-Billing Ms. Madrid is a 72 yo F who has a h/o HTN, HLD and past DVT/PE who presented to the ER after having a syncopal episode at home where she sustained a L TRImalleolar ankle fracture with stay notable for urinary retention, prolonged pauses of >6sec s/p PPM 12/02 and then ORIF on 12/05. - Patient Problems (1) Trimalleolar fracture of ankle, closed Code(s): S82.853A - DISPLACED TRIMALLEOLAR FRACTURE OF UNSP LOWER LEG, INIT SNOMED Code(s): 6750640 Comment: - Ankle initially set by Dr. Ann in the ER, now S/P ORIF on 12/05 without complication. - Continue pain control and bowel regimen. Monitor H/H, stable. (2) Syncope Code(s): R55 - SYNCOPE AND COLLAPSE SNOMED Code(s): 558237326 Comment: - Appreciate cardiology input. - Secondary to prolonged sinus pauses s/p pacemaker insertion 12/02. - Avoid vagal stimuli to avoid recurrences. (3) Constipation Code(s): K59.00 - CONSTIPATION, UNSPECIFIED SNOMED Code(s): 13433423 Comment: - Reports this has been a problem in the past. - Advised to be aggressive with post-operative bowel regimen to avoid constipation. - Continue colace and senna scheduled, with Miralax and Lactulose PRN. (4) HTN (hypertension) Code(s): I10 - ESSENTIAL (PRIMARY) HYPERTENSION SNOMED Code(s): 04707585 Comment: - SBP 100-150's. - Continue metoprolol and lisinopril. (5) Hyponatremia Code(s): E87.1 - HYPO-OSMOLALITY AND HYPONATREMIA SNOMED Code(s): 23369775 Comment: - Stable. - Continue to holding HCTZ. (6) History of deep venous thrombosis or pulmonary embolus Code(s): IFV9490 - SNOMED Code(s): 876643205 Comment: - Noted - Heparin SubQ. (7) Urinary retention Code(s): R33.9 - RETENTION OF URINE, UNSPECIFIED SNOMED Code(s): 899102419 Comment: - Resolved. - No retention at this time. - Consider flomax if continued retention. (8) DVT prophylaxis Code(s): VYU2365 - SNOMED Code(s): 240484873 Comment: - Heparin SubQ. (9) Full code status Code(s): Z78.9 - OTHER SPECIFIED HEALTH STATUS SNOMED Code(s): 586542374 Status and Disposition: Inpatient. Stable for transfer to [facility] today.
--- NOTE | 2017-12-08 10:32 | DS ---
CC: Dr. Carmelo Gastelum * DISCHARGE SUMMARY: DATE OF ADMISSION: 12/01/17 DATE OF DISCHARGE: 12/08/17 PRIMARY CARE PROVIDER: Dr. Carmelo Gastelum. MY ATTENDING WHILE IN THE HOSPITAL: Oliverio Crabtree MD * (DICTATED BY MEREDITH TORREZ) PRIMARY DISCHARGE DIAGNOSES: 1. Sick sinus syndrome, status post pacemaker implantation. 2. Trimalleolar fracture of the left ankle, status post open reduction internal fixation. 3. Urinary retention. SECONDARY DISCHARGE DIAGNOSES: 1. Hypertension. 2. Hyperlipidemia. 3. History of provoked deep vein thrombosis and pulmonary embolism. 4. History of thoracic compression fracture, status post kyphoplasty. STUDIES DONE WHILE IN THE HOSPITAL: 1. Brain CT from 12/01/17 read as no acute intracranial pathology. 2. Cervical spine CT from 12/01/17 read as degenerative disc disease and osteoarthritis, ____ osseous injury of the cervical spine. 3. Lower extremity ankle x-ray from 12/01/17 read as bimalleolar fracture left ankle anterior and medial subluxation of the tibial with respect to talus and widening of the talofibular interval. 4. Lower extremity x-ray from 12/01/17 read again notes bimalleolar fracture of the left ankle. 5. Pelvis x-ray from 12/01/17 read as anatomic alignment of the right hip prosthesis in the AP projection without radiographically apparent fracture or dislocation. 6. Chest x-ray from 12/01/17 read as no radiographic evidenced for acute cardiopulmonary abnormality in this portable chest x-ray. 7. Transthoracic echocardiogram from 12/01/17 read as left ventricular chamber size normal along with constricted left ventricular hypertrophy observed as normal left ventricular systolic function, estimated ejection fraction 60 to 75% , left atrial chamber size normal, right ventricular chamber size systolic within normal limits. No significant valvular abnormalities. Unable to estimate the right ventricular systolic pressure. There is no significant pericardial effusion optimize study. No prior study for comparison. 8. Ankle x-ray from 12/01/17 read as anatomic alignment of left trimalleolar fracture, status post attending. 9. Lower extremity CT from 12/02/17 read as left trimalleolar fracture with asymmetric widening of the medial ankle mortise. 10. Chest x-ray from 12/02/17 read as emphysema. No active cardiopulmonary disease. 11. Chest x-ray from 12/03/17 read as no evidence of pneumothorax or pulmonary edema, status post pacemaker placement. 12. Fluoroscopy from 12/05/17 read as nothing to contribute. 13. EKG from shows normal sinus rhythm. No ST segment abnormalities. QTc of 446, left axis deviation, rate of 72. No hypertrophy or enlargement. 14. Repeat EKG from 12/02/17 shows pacemaking appropriate sensing, normal ST segments, no significant changes. 15. EKG from 12/02/17 shows dual-chamber paced rhythm at magnet rate. 16. EKG from 12/03/17 shows normal sinus rhythm, appropriate pacing, sensing recent pacemaker implantation. No other abnormalities. 17. EKG from 12/03/17 shows dual-chamber paced rhythm at magnet rate. MEDICATIONS AT DISCHARGE: 1. Hydroxyzine 25 mg p.o. t.i.d. as needed. 2. Vitamin 1000 units b.i.d. 3. Potassium chloride 10 mEq p.o. daily. 4. Nexium 40 mg p.o. daily. 5. Mirapex 0.25 mg p.o. at bedtime. 6. Senokot one tab p.o. b.i.d. 7. Cyclobenzaprine 5 mg p.o. b.i.d. as needed. 8. Cyproheptadine 4 mg p.o. daily as needed. 9. Albuterol inhaler two puffs inhalation q. 4 hours as needed. 10. Vitamin D3 calcium carbonate 500 [to 100?] one tab p.o. daily. 11. Polyethylene glycol 17 g p.o. daily as needed. 12. Minocycline 50 mg p.o. daily as needed. 13. Benzoate 100 mg p.o. t.i.d. as needed. 14. Tylenol 650 mg p.o. q. 4 hours as needed. 15. Docusate [200?] mg p.o. daily. 16. Lisinopril 5 mg p.o. daily. 17. Metoprolol succinate 25 mg p.o. daily. 18. Oxycodone 10 mg p.o. q. 4 hours as needed. New medications at discharge: 1. Tylenol. 2. Docusate. 3. Lisinopril. 4. Metoprolol. 5. Oxycodone. Medications discontinued at discharge: 1. Percocet 5/325 q.4 hours as needed. 2. Zestoretic one tab p.o. daily. HOSPITAL COURSE: This is a brief summary of patient's presentation. For more details, please see history and physical from Dr. Jennifer Lopez on 12/01/17. In brief, the patient is 72-year-old female with a past medical history significant for the above who presents after passing out with no prodromal symptoms while standing on a ladder. She came to on the floor and noted she had chest pain, shortness of breath, but pain in her ankle. The patient had episodes of dizziness with presyncope over the past week. The patient had a similar episode 2 years previously. The patient was found to have a 7-second pause in the emergency department, with 9/10 pain, while she was having pain with associated bradycardia and nausea. She had no other cardiac symptoms. She was seen in consultation by Dr. Adeel Ovalle and was recommended for a pacemaker. It is believed the vagal response contributed to her pause, so these were recommended to be avoided. The patient was seen in consultation by MEREDITH Tabor in the emergency department, and she does plan for ORIF of the left ankle when cardiovascularly cleared. The patient had a closed reduction of dislocation with Dr. Tariq Ann on 12/01/17. The patient had continued pain, and a 6.5 second pause while urinating which was treated with a Reza catheter. The patient had a pacemaker implantation 12/02/17 without complication or pneumothorax, and EKG testing as above. The patient was started on beta-constantin, for more filling time in her, by cardiology. The patient had urinalysis which grew no pathogens. The patient was constipated after her pacemaker implantation, and needed magnesium citrate to help her have a bowel movement. Patient stated that her constipation was a chronic problem. Patient was normotensive off of her Zestoretic, only on the metoprolol, and then remained normotensive after reintroduction of lisinopril, which was later held for her surgery and then reintroduced at a lower rate. The patient had three days of clindamycin after her surgery without diarrhea or abdominal pain. The patient has spasms in her back and legs which was resolved with Flexeril. The patient had slight hyponatremia on admission at 133, which decreased to 132 and 130 even after hydrochlorothiazide was stopped, then re- increased to 132 on the day. The patient had a sodium of 129 on admission which increased to 133 and remained steady there for the rest of her hospitalization. The patient had hemoglobin of 12.6 on admission, which decreased to 10.2 on day of discharge, likely related to dilution. The patient was slightly hypertensive a few times during her admission, and had her blood pressure medications reintroduced as above. Due to her left arm immobilization and left leg nonweightbearing status , was recommended to go to rehab. The patient was seen by physical therapy and they identified rehab needs. The patient had a bed offer, which was accepted on 12/07/17, from the [facility], and is stable for discharge on 12/08/17. On the night of 12/05/17 to 12/06/17, patient had an episode of confusion, likely related to delirium with hallucinations that resolved overnight and had no recurrence. PHYSICAL EXAM ON THE DAY OF DISCHARGE: General: The patient is a 72-year-old female who appears stated age and sitting comfortably in the bed in no acute distress. Vital Signs: At the time of discharge on 12/07/17, temperature 98.4 , heart rate 73, respiratory rate 24. DISCHARGE PLAN: The patient is discharged to [facility] on 12/07/17 for rehab while she has her arm in an immobilizer and her leg nonweightbearing. The patient should follow discharge instructions from cardiology with regards to not being able to lift her arm on the side, above her head, or lifting more than 5 pounds for one month, and no large movements for reaching, and having her arm in an immobilizer on the infected side for 3 to 4 weeks. The patient should have wound care as instructed for both her foot, and Mepilex on her chest. The patient should followup with cardiology within one month, and Dr. Bearden of orthopedics in 2 weeks. The patient should be monitored for urinary retention in the post-operative period, and should be treated with Flomax if indicated; however, patient is not retaining at this time while in the hospital. The patient should followup with her primary care provider, Dr. Gastelum , upon discharge from rehab. The patient should have a heart-healthy diet without caffeine. TIME SPENT: Approximately 60 minutes were spent on this discharge, 30 of which were spent [id number] with the patient obtaining history and physical and discussing treatment plan. MEREDITH TORREZ [id number]/CPS #: [id number]
--- NOTE | 2017-12-08 16:06 | PN ---
Progress Note - Progress Note Date of Service: 12/08/17 SOAP: Subjective: []Patient seen at bedside for report of discomfort in the heel with her splint. Objective: []General: Well appearing, NAD. Calm and comfortable LLE: Splint removed and new posterior/stirrup splint placed. patient tolerated well. Exposed toes warm, capillary refill less than two seconds, able to wiggle and sensation intact to light touch. Skin without breakdown, erythema or ulceration. RLE: Calf supple and nontender without erythema or edema Assessment: []POD 3 S/P left ankle ORIF Plan: [][facility] today
== END 2017-12-08 12:17 | DRG 243 ==
LOC: ED 11:38 → ICU 16:09 → MEDTELE 12-02 14:52
PROVIDERS: ADMIT Hospitalist; ATTEND Internal Medicine
PROC: 0JH606Z Insertion of Pacemaker, Dual Chamber into Chest Subcutaneous Tissue and Fascia, Open Approach (ICD-10-PCS; 2017-12-02)
PROC: 02H63JZ Insertion of Pacemaker Lead into Right Atrium, Percutaneous Approach (ICD-10-PCS; 2017-12-02)
PROC: 02HK3JZ Insertion of Pacemaker Lead into Right Ventricle, Percutaneous Approach (ICD-10-PCS; 2017-12-02)
PROC: 0T9B70Z Drainage of Bladder with Drainage Device, Via Natural or Artificial Opening (ICD-10-PCS; principal; 2017-12-02 08:00)
PROC: 0QSH04Z Reposition Left Tibia with Internal Fixation Device, Open Approach (ICD-10-PCS; 2017-12-05)
PROC: 0QSK04Z Reposition Left Fibula with Internal Fixation Device, Open Approach (ICD-10-PCS; 2017-12-05)
PROC: 0QSH04Z Reposition Left Tibia with Internal Fixation Device, Open Approach (ICD-10-PCS; 2017-12-05)
DX: I49.5 Sick sinus syndrome (principal); E87.1 Hypo-osmolality and hyponatremia; I10 Essential (primary) hypertension; G47.33 Obstructive sleep apnea (adult) (pediatric); K21.9 Gastro-esophageal reflux disease without esophagitis; K58.9 Irritable bowel syndrome, unspecified; M19.90 Unspecified osteoarthritis, unspecified site; F41.9 Anxiety disorder, unspecified; F32.9 Major depressive disorder, single episode, unspecified; G25.81 Restless legs syndrome; Z96.612 Presence of left artificial shoulder joint; Z96.641 Presence of right artificial hip joint; H26.9 Unspecified cataract; W18.30XA Fall on same level, unspecified, initial encounter; E78.5 Hyperlipidemia, unspecified; M50.30 Other cervical disc degeneration, unspecified cervical region; M47.892 Other spondylosis, cervical region; S93.02XA Subluxation of left ankle joint, initial encounter; N32.89 Other specified disorders of bladder; S82.852A Displaced trimalleolar fracture of left lower leg, initial encounter for closed fracture; Z82.49 Family history of ischemic heart disease and other diseases of the circulatory system; Z88.1 Allergy status to other antibiotic agents; Z91.048 Other nonmedicinal substance allergy status; Z90.710 Acquired absence of both cervix and uterus; Z72.89 Other problems related to lifestyle; Z86.718 Personal history of other venous thrombosis and embolism; Z86.711 Personal history of pulmonary embolism; Y92.009 Unspecified place in unspecified non-institutional (private) residence as the place of occurrence of the external cause; Y92.9 Unspecified place or not applicable; K59.00 Constipation, unspecified; R33.9 Retention of urine, unspecified
CPT/HCPCS: 33208; 36415; 70450; 71045; 71046; 72125; 72170; 76000; 80048; 80053; 81003; 81015; 83735; 83880; 84443; 84484; 85025; 85027; 85610; 87086; 87641; 93005; 93306; 99156; 99157; 99285; A9270-GY; C1713; C1776; C1785; C1898; C8929; G8978-GP-CL; G8978-GP-CN; G8979-GP-CJ; G8979-GP-CM; J0461; J1100; J1170; J1644; J2250; J2270; J2310; J2400; J2405; J2704; J3010; Q9967

== ENCOUNTER 2023-08-14 10:44 | Inpatient (IN) ==
[2023-08-14 11:11] LABS: ABS Lymphocytes 1.1 10^3/uL (1.0-4.8); ABS Monocytes 0.4 10^3/uL (0.0-0.9); ABS Neutrophils 4.3 10^3/uL (1.5-7.6); ABS Nucleated RBC 0.01 10^3/ul; Eosinophil % 0.6 %; Hematocrit 37.7 % (35-45); Hemoglobin 13.3 g/dL (11.5-14.3); Lymphocyte % 18.1 %; Mean Corpuscular Hgb Conc 35.3 g/dL (31-36); Mean Corpuscular Volume 93.4 fL (80-97); Mean Platelet Volume 7.2 fL (7.5-11.2); Nucleated Red Blood Cells % 0.1 %/100WBC (0.0-0.8); Platelet Count 318 10^3/uL (150-450); Red Blood Count 4.04 10^6/uL (3.63-4.92); White Blood Count 5.8 10^3/uL (3.8-11.8)
[2023-08-14] MEDS ORDERED: Iodixanol (CONTRAST) 320 MG/ML 100 ML SDV IV ONE (11:14)
[2023-08-14 11:17] LABS: Activated Partial Thrombo Time 41.3 seconds (26.0-38.0); INR 1.58 (0.83-1.13)
[2023-08-14 11:29] LABS: Albumin 4.1 g/dL (3.2-5.2); Albumin/Globulin Ratio 1.4 (1-3); Calcium 9.8 mg/dL (8.6-10.3); Creatinine, Serum 0.63 mg/dL (0.51-0.95); HDL Cholesterol 84.5 mg/dL; Indirect Bilirubin 0.3 mg/dL (0.3-1.0); Potassium 3.7 mmol/L (3.5-5.0); Total Bilirubin 0.3 mg/dL (0.2-1.0); Total Protein 7.1 g/dL (6.4-8.9); eGFR CKD-EPI 90.2 (>60)
[2023-08-14] MEDS: Potassium Chlor 10 meq TAB PO SCH (17:56)
[2023-08-14] MEDS: Cholecalciferol (VIT D3) 1,000 unit TAB PO SCH (20:34)
[2023-08-15 07:16] LABS: ABS Eosinophils 0.1 10^3/uL (0.0-0.5); ABS Lymphocytes 1.5 10^3/uL (1.0-4.8); ABS Monocytes 0.5 10^3/uL (0.0-0.9); ABS Neutrophils 2.3 10^3/uL (1.5-7.6); ABS Nucleated RBC 0.01 10^3/ul; Eosinophil % 2.2 %; Hematocrit 34.8 % (35-45); Lymphocyte % 34.8 %; Mean Corpuscular Hemoglobin 32.7 pg (27-33); Mean Corpuscular Hgb Conc 34.5 g/dL (31-36); Mean Corpuscular Volume 94.7 fL (80-97); Mean Platelet Volume 7.3 fL (7.5-11.2); Nucleated Red Blood Cells % 0.2 %/100WBC (0.0-0.8); Platelet Count 277 10^3/uL (150-450); Red Blood Count 3.68 10^6/uL (3.63-4.92); Red Cell Distribution Width 12.8 % (12-17); White Blood Count 4.4 10^3/uL (3.8-11.8)
[2023-08-15 07:34] LABS: Calcium 8.8 mg/dL (8.6-10.3); Creatinine, Serum 0.53 mg/dL (0.51-0.95)
[2023-08-15] MEDS: Potassium Chlor 10 meq TAB PO SCH (08:50)
[2023-08-15] MEDS: Calcium/Vitamin D TAB 250/125 TAB PO SCH (08:51)
[2023-08-15] MEDS: Cholecalciferol (VIT D3) 1,000 unit TAB PO SCH ×2 (08:51→21:11)
[2023-08-15] MEDS: Senna TAB 8.6 mg TAB PO SCH (08:51)
[2023-08-15] MEDS ORDERED: NS 0.9% 1000 ml BAG 1,000 ML IV ONE (13:35)
[2023-08-16] MEDS: Senna TAB 8.6 mg TAB PO SCH (08:19)
[2023-08-16] MEDS: Cholecalciferol (VIT D3) 1,000 unit TAB PO SCH ×2 (08:20→20:50)
[2023-08-16] MEDS: Potassium Chlor 10 meq TAB PO SCH (08:20)
[2023-08-16] MEDS: Calcium/Vitamin D TAB 250/125 TAB PO SCH (08:20)
[2023-08-16 12:09] LABS: Urine Appearance Clear; Urine Bilirubin Negative (Negative); Urine Blood Negative (Negative); Urine Color Yellow; Urine Glucose Negative (Negative); Urine Ketones Negative (Negative); Urine Nitrite Negative (Negative); Urine Protein Negative (Negative); Urine Specific Gravity 1.014 (1.002-1.030); Urine Urobilinogen Negative (Negative)
[2023-08-16 13:22] LABS: Calcium 9.2 mg/dL (8.6-10.3); Creatinine, Serum 0.57 mg/dL (0.51-0.95); Magnesium 2.1 mg/dL (1.9-2.7); Potassium 4.4 mmol/L (3.5-5.0); eGFR CKD-EPI 92.4 (>60)
[2023-08-16] MEDS ORDERED: Acetaminophen IV 1 GM/100ML 1,000 MG/100 ML BAG IV PRN (14:45)
[2023-08-16] MEDS ORDERED: Lidocaine PATCH 4% TOPICAL PRN (14:46)
[2023-08-17] MEDS: Calcium/Vitamin D TAB 250/125 TAB PO SCH (08:44)
[2023-08-17] MEDS: Senna TAB 8.6 mg TAB PO SCH (08:44)
[2023-08-17] MEDS: Cholecalciferol (VIT D3) 1,000 unit TAB PO SCH (08:44)
[2023-08-17] MEDS: Potassium Chlor 10 meq TAB PO SCH (08:45)
[2023-08-17] MEDS ORDERED: Magnesium Hydroxide LIQ 30 ML UDC PO PRN (10:50)
[2023-08-17] MEDS ORDERED: Magnesium Hydroxide LIQ 30 ML UDC PO ONE (10:50)
[2023-08-17 14:18] VITALS: BP 100/55
== END 2023-08-17 16:06 | disposition home or self-care (01) | DRG 149 ==
LOC: ED 10:44 → EDHOLD 12:46 → SUATTDRO 12:46 → MEDTELE 14:28
PROVIDERS: ADMIT Internal Medicine; ATTEND Internal Medicine